=== PATIENT | female | born 1980 | race Caucasian/White ===

== ENCOUNTER → 2020-03-17 14:28 | Outpatient (CLI) | payer MEDICAID, SELFPAY ==
--- NOTE | ~2020-03-17 | CT_ITS ---
EXAMINATION: CT abdomen pelvis wo con DATE: 03/17/2020 14:48 INDICATION: Chronic pelvic pain TECHNIQUE: Computed tomography (CT) of the abdomen and pelvis was performed without intravenous contr ast. The dose-length product (DLP) was 650.12 mGy-cm. Automated exposure control and iterative recons truction technique were employed. COMPARISON: 05/17/2016 FINDINGS: The lung bases are clear. The heart size is normal. There are a few unchanged, scattered th in-walled cystic changes of the lung bases. The liver, spleen, pancreas, gallbladder, and adrenal gla nds are normal. The kidneys are unremarkable. No pathologically enlarged abdominal or pelvic lymph no bob are identified. There is no free intraperitoneal gas or evidence of bowel obstruction. There are phleboliths in the pelvis. Changes of hysterectomy are noted. There is a fat-containing umbilical her kena. Mild lumbar spondylosis is noted. IMPRESSION: 1. No CT correlate for the patient's symptoms. Reviewed, dictated and finalized at location A. [employer] WORK[employer]
== END ==
PROVIDERS: Visit Provider Nurse Practitioner Family
DX: R10.2 Pelvic and perineal pain (principal)
CPT/HCPCS: 74176

== ENCOUNTER 2022-09-03 12:49 | Outpatient (RCR) | payer OTHER, SELFPAY ==
[2022-09-03 13:13] LABS: Basophils Absolute Auto 0.1 K/mm3 (0.0-0.1); Basophils Percent Auto 0.6 % (0.2-1.2); Eosinophils Absolute Auto 0.3 K/mm3 (0-0.3); Eosinophils Percent Auto 2.4 % (0-4.4); Hematocrit 41.8 % (37.0-47.0); Hemoglobin 13.8 g/dL (12.0-15.0); Immature Granulocyte Absolute 0.06 K/mm3 (0.00-0.031); Immature Granulocyte Percent A 0.4 % (0-0.5); Lymphocytes Absolute Auto 3.93 K/mm3 (0.9-3.2); Lymphocytes Percent Auto 28.2 % (18.3-44.2); Mean Corpuscular Hemoglobin 28.6 pg (26-34); Mean Corpuscular Volume 86.7 fl (80-100); Mean Platelet Volume 7.8 fl (7.4-10.4); Monocytes Absolute Auto 0.7 K/mm3 (0.1-0.6); Monocytes Percent Auto 5.2 % (2.6-8.5); Neutrophils Absolute Auto 8.8 K/mm3 (1.3-6.7); Neutrophils Percent Auto 63.2 % (45.5-73.1); Platelet Count Result 341 k/mm3 (150-375); Red Blood Count 4.82 M/mm3 (4.2-5.4); Red Cell Distribution Width 13.8 % (11.5-14.5); White Blood Count 13.9 K/mm3 (4.5-10.0)
[2022-09-03 15:40] LABS: Alanine Aminotransferase 26 U/L (6-35); Alkaline Phosphatase 96 U/L (38-126); Anion Gap 7 mmol/L (8-16); Aspartate Amino Transferase 22 U/L (14-36); Bilirubin,Total 0.4 mg/dL (0.2-1.3); Blood Urea Nitrogen 11 mg/dL (7-17); Calcium 8.5 mg/dL (8.4-10.2); Carbon Dioxide 27 mmol/L (22-30); Chloride 105 mmol/L (98-107); Estimated Glomerular Filt Rate > 60; Glucose 116 mg/dL (65-110); Potassium 3.5 mmol/L (3.4-5.0); Sodium 139 mmol/L (137-145)
[2022-09-03 16:09] LABS: Hepatitis B Surface Antigen Negative (Negative)
[2022-09-03 16:19] LABS: HIV 1/2 Ab P24 Ag Result Negative (Negative)
[2022-09-03 16:27] LABS: Hepatitis C Virus Antibody Negative (Negative)
== END 2022-09-06 12:45 | disposition other institution (70) ==
LOC: AMCINF 12:49
PROVIDERS: PCP Nurse Practitioner Family; Visit Provider Internal Medicine
DX: D72.829 Elevated white blood cell count, unspecified (principal)
CPT/HCPCS: 36415; 80053; 85025; 86703; 86803; 87340; G0432

== ENCOUNTER 2022-09-14 11:57 | Outpatient (CLI) | payer OTHER, SELFPAY ==
--- NOTE | ~2022-09-14 | XR_ITS ---
AP and lateral views of the right tibia/fibula Clinical History: Pain Findings: No acute fracture or dislocation is seen. Osseous alignment is anatomic. Joint spaces are p reserved without significant erosive or degenerative change. Soft tissues are unremarkable. Impression: Unremarkable right tib-fib radiographs. Reviewed, dictated and finalized at location . Impression: Unremarkable right tib-fib radiographs.
--- NOTE | ~2022-09-14 | XR_ITS ---
AP and lateral views of the left tibia/fibula Clinical History: Pain Findings: No acute fracture or dislocation is seen. Osseous alignment is anatomic. Joint spaces are p reserved without significant erosive or degenerative change. Soft tissues are unremarkable. Impression: Unremarkable left tib-fib radiographs. Reviewed, dictated and finalized at location . Impression: Unremarkable left tib-fib radiographs.
--- NOTE | ~2022-09-14 | XR_ITS ---
EXAMINATION: XR femur LT min 2V DATE: 09/14/2022 12:37 INDICATION: Bilateral upper leg pain TECHNIQUE: AP and lateral views of the left femur were obtained on overlapping proximal and distal im ages. COMPARISON: None. FINDINGS: Alignment is normal. No fracture or suspected avascular necrosis. Left hip and knee joint spaces appe ar normal. Small enthesophyte at the lesser trochanter. Soft tissues are unremarkable. IMPRESSION: 1. Small enthesophyte at the lesser trochanter of the left femur. Otherwise unremarkable left femur r adiographs. Reviewed, dictated and finalized at location L. IMPRESSION: 1. Small enthesophyte at the lesser trochanter of the left femur. Otherwise unr emarkable left femur radiographs.
--- NOTE | ~2022-09-14 | XR_ITS ---
AP and lateral views of the right femur Clinical History: Pain Findings: No acute fracture or dislocation is seen. Osseous alignment is anatomic. Visualized joint s paces are grossly preserved. Soft tissues are unremarkable. Impression: Unremarkable right femoral radiographs. Reviewed, dictated and finalized at location M. Impression: Unremarkable right femoral radiographs.
== END 2022-09-14 11:58 | disposition home or self-care (01) ==
PROVIDERS: PCP Nurse Practitioner Family; Visit Provider Nurse Practitioner Family
DX: M79.604 Pain in right leg (principal); M79.605 Pain in left leg; M76.9 Unspecified enthesopathy, lower limb, excluding foot
CPT/HCPCS: 73552; 73590

== ENCOUNTER 2022-09-29 01:27 | Day surgery (SDC) | payer OTHER, SELFPAY ==
[2022-09-16 11:26] VITALS: BMI 32.1
--- NOTE | 2022-09-28 13:51 | P.PNAN_ITS ---
Anes - Initial Pre Proc Eval Procedure: Operation Date: 09/29/22 08:15 Proposed Procedures p Colonoscopy - Earl Schmidt MD Date/Time: 09/28/22 13:51 Surgeon: Earl Schmidt MD Pre Op Diagnosis: hematochezia Patient Data Age: 42 Gender: F Height: 1.63 m Weight: 85 kg Allergies Allergy/AdvReac Type Severity Reaction Status Date / Time No Known Allergies Allergy Verified 09/29/22 07:09 Home Medications Medication Instructions Recorded Confirmed Type Wily-Iron 65 mg PO DAILY 09/16/22 09/29/22 History Vitamin D3 1 tab-cap BYMOUTH DAILY 09/16/22 09/29/22 History Patient hx anesthesia problems: none Family hx anesthesia problems: none Results Review: All pre-operative results and documents have been reviewed as part of the pre- operative evaluation. PMFSH Past Medical History Medical History (Updated 09/28/22 @ 13:52 by Willis Schwab DO) Endometriosis Surgical History Surgical History (Updated 09/28/22 @ 13:52 by Willis Schwab DO) History of hysterectomy Social History Social History (System 11/14/19 @ 09:56 by Josie Lowe) Smoking packs per day: 1.5 Smoking cigarettes per day: 30.0 Years smoked: 15 Smoking pack-years: 22.50 Smoking status: Current every day smoker Tobacco type: cigarettes Substance use: never Substance use type: does not use Living arrangements: with family Spiritual care concerns: No Anes - Eval Final PreProcedure Day of Procedure 09/28/22 13:51 Patient weight: obese Heart: regular rate and rhythm Lungs: clear to auscultation Airway: Mallampati scale class II Neurological: alert and oriented Last oral intake: >/= 8 hours ASA classification: III Emergent: no Anesthetic plan: proceed Anesthesia type and monitoring: general GIVS and standard monitoring Results Review: All pre-operative results and documents have been reviewed as part of the pre- operative evaluation. Informed Consent: The patient's anesthetic plan and its attendant risks and benefits were discussed with the patient/family/POA. Questions were solicited and answers provided to the satisfaction of the patient/family/POA.
[2022-09-29 07:11] VITALS: BP 131/71; PULSE 101; RESP 16; TEMP 36.1; O2SAT 97; BMI 31.6
[2022-09-29] MEDS: LACTATED RINGERS 1,000 ML 150 ML IV CONT (07:23)
--- NOTE | 2022-09-29 08:01 | PM.HPGS ---
History of Present Illness History of Present Illness Consent: Risks, benefits, and alternatives have been discussed and questions answered. Patient agrees to proceed with procedure. Chief complaint: hematochezia Narrative: Ashley Sullivan is a 42 year old female with hematochezia, never had colonoscopy Review of Systems Constitutional: Constitutional: Denies headache(s) and Denies weakness Eyes: Eyes: Denies blurry vision ENT: Reports Normal hearing present, Denies headache(s) and Denies neck pain Cardiovascular: Cardiovascular: Denies chest pain and Denies dyspnea Respiratory: Respiratory: Denies dyspnea Gastrointestinal: Gastrointestinal: Reports no additional gastrointestinal complaints Genitourinary: Genitourinary: Denies dysuria Musculoskeletal: Musculoskeletal: Denies neck pain Integumentary/Breasts: Skin/Breast: Denies dry skin Neurologic: Reports Normal hearing present, Denies headache(s) and Denies weakness Psychiatric: Psychiatric: Denies anxiety Endocrine: Endocrine: Denies change in body appearance Hematologic/Lymphatic: Hematologic/Lymphatic: Denies easy bleeding Allergic/Immunologic: Allergic/Immunologic: Denies urticaria PMFSH Past Medical History Medical History (Updated 09/29/22 @ 08:02 by Earl Schmidt MD) Endometriosis Rectal bleeding Surgical History Surgical History (Updated 09/28/22 @ 13:52 by Willis Schwab DO) History of hysterectomy Social History Social History (System 11/14/19 @ 09:56 by Josie Lowe) Smoking packs per day: 1.5 Smoking cigarettes per day: 30.0 Years smoked: 15 Smoking pack-years: 22.50 Smoking status: Current every day smoker Tobacco type: cigarettes Substance use: never Substance use type: does not use Living arrangements: with family Spiritual care concerns: No Meds Home Medications and Allergies Home Medications Medication Instructions Recorded Confirmed Type Wily-Iron 65 mg PO DAILY 09/16/22 09/29/22 History Vitamin D3 1 tab-cap BYMOUTH DAILY 09/16/22 09/29/22 History Allergies Allergy/AdvReac Type Severity Reaction Status Date / Time No Known Allergies Allergy Verified 09/29/22 07:09 Vital Signs Vital Signs - 24 hr 09/29/22 07:11 Temperature 97 F L Pulse Rate 101 H Respiratory Rate 16 Blood Pressure 131/71 Pulse Oximetry 97 Oxygen Delivery Room Air Exam Const: General: comfortable and no acute distress HENMT: Face/Nose/Sinus: Normal nares present Eyes: General: appearance normal, both eyes and all related structures Neck: Neck: no JVD Resp: Auscultation: clear to auscultation bilaterally Cardio: Rate: regular rate Rhythm: regular rhythm GI: Inspection: non-distended GI Palp: Yes Soft to palpation Skin: General skin exam: normal color Neuro: General: gait normal Speech: normal speech Extrem: General: normal to inspection Psych: Mental Status: mental status grossly normal Assessment and Plan Assessment and plan (1) Rectal bleeding: Code(s): K62.5 - Hemorrhage of anus and rectum Status: Acute Assessment and Plan: colonoscopy
[2022-09-29 08:27] VITALS: BP 113/71; PULSE 87; RESP 20; O2SAT 97
[2022-09-29 08:37] VITALS: BP 116/73; PULSE 79; RESP 18; O2SAT 97
[2022-09-29 08:47] VITALS: BP 138/86; PULSE 80; RESP 16; O2SAT 98
== END 2022-09-29 09:08 | disposition home or self-care (01) ==
PROVIDERS: PCP Nurse Practitioner Family; Visit Provider Internal Medicine Gastroenterology
PROC: 0DJD8ZZ Inspection of Lower Intestinal Tract, Via Natural or Artificial Opening Endoscopic (ICD-10-PCS; CPT 45378; principal; 2022-09-29 08:15)
DX: K63.5 Polyp of colon (principal); K64.8 Other hemorrhoids; K64.4 Residual hemorrhoidal skin tags; F17.210 Nicotine dependence, cigarettes, uncomplicated; E66.9 Obesity, unspecified; Z68.31 Body mass index [BMI] 31.0-31.9, adult
CPT/HCPCS: 45385; 88305; J2704; J7120

== ENCOUNTER 2022-10-12 12:51 | Outpatient (CLI) | payer OTHER, SELFPAY | END 2022-10-12 12:52 | disposition home or self-care (01) | PROVIDERS: PCP Nurse Practitioner Family; Visit Provider Internal Medicine Hematology & Oncology | DX: D72.829 Elevated white blood cell count, unspecified (principal) | CPT/HCPCS: 88184 ==

== ENCOUNTER 2022-12-02 14:34 | Outpatient (CLI) | payer OTHER, SELFPAY ==
--- NOTE | ~2022-12-02 | US_ITS ---
EXAMINATION:US venous doppler LE BI INDICATION:Leg pain TECHNIQUE: Multiple grayscale, color flow and Doppler images of the right and left lower extremity de ep venous systems were obtained and reviewed. COMPARISON:No prior studies for comparison. FINDINGS: The common femoral, superficial femoral and popliteal veins demonstrate normal respiratory variation, augmentation and compressibility. Color flow is also seen within the posterior tibial, pe roneal, greater saphenous and profunda veins. IMPRESSION: 1: No lower extremity deep venous thrombosis. Reviewed, dictated and finalized at location L.
== END 2022-12-02 14:35 | disposition home or self-care (01) ==
PROVIDERS: PCP Nurse Practitioner Family; Visit Provider Nurse Practitioner Family
DX: M79.604 Pain in right leg (principal); M79.605 Pain in left leg
CPT/HCPCS: 93970

== ENCOUNTER 2023-04-19 10:04 | Outpatient (CLI) | payer OTHER, SELFPAY ==
--- NOTE | ~2023-04-19 | XR_ITS ---
EXAMINATION: XR lumbar spine 2-3V DATE: 04/19/2023 10:20 INDICATION: Low back pain. Bilateral leg burning pain. TECHNIQUE: 3 views of lumbar spine were obtained. COMPARISON: CT abdomen and pelvis 03/17/2020 FINDINGS: There is 4 degrees dextrocurvature of thoracolumbar spine. Vertebral body heights are abdullahi l. There are endplate osteophytes at multiple levels. There is multilevel mild facet joint osteoarthr itis. IMPRESSION: 1. Mild lumbar spondylosis. Reviewed, dictated and finalized at location A. IMPRESSION: 1. Mild lumbar spondylosis.
== END 2023-04-19 10:05 | disposition home or self-care (01) ==
LOC: ANHIMG 10:06
PROVIDERS: PCP Nurse Practitioner Family; Visit Provider Family Medicine
DX: M47.896 Other spondylosis, lumbar region (principal)
CPT/HCPCS: 72100

== ENCOUNTER 2023-04-28 08:19 | Outpatient (CLI) | payer OTHER, SELFPAY ==
--- NOTE | ~2023-04-28 | US_ITS ---
EXAMINATION: US arterial ankle brachial ind DATE: 04/28/2023 09:02 INDICATION: Bilateral lower limb pain and paresthesias. TECHNIQUE: Segmental pressures and plethysmographic and Doppler waveforms of the brachial and lower e xtremity arteries were obtained. COMPARISON: None. FINDINGS: Right and left brachial artery pressures of 133 mm Hg and 137 mm Hg, respectively, are concordant (no rmal difference <= 30 mmHg). The right ankle-brachial index (FABIOLA) is 1.17 (normal >= 0.9-1.0). The right great toe-brachial index (TBI) is 0.88 (normal >= 0.65). Arterial Doppler waveforms are biphasic with brisk systolic upstrokes at both right posterior tibial and dorsalis pedis arteries. The left FABIOLA is 1.23. The left TBI is 0.84. Arterial Doppler waveforms are biphasic with brisk systol ic upstrokes at both left posterior tibial and dorsalis pedis arteries. IMPRESSION: 1. No significant arterial occlusive disease to either lower limb with normal bilateral ABIs and TBIs . Reviewed, dictated and finalized at location A. IMPRESSION: 1. No significant arterial occlusive disease to either lower limb with normal b ilateral ABIs and TBIs.
== END 2023-04-28 08:20 | disposition home or self-care (01) ==
PROVIDERS: PCP Nurse Practitioner Family; Visit Provider Family Medicine
DX: M79.605 Pain in left leg (principal); M54.50 Low back pain, unspecified; G62.9 Polyneuropathy, unspecified; M79.604 Pain in right leg; R20.2 Paresthesia of skin
CPT/HCPCS: 93922

== ENCOUNTER 2024-03-01 08:11 | Emergency (ER) | payer SELFPAY ==
--- NOTE | 2024-03-01 08:12 | ED_ITS ---
HPI - URI/Sore Throat General Chief Complaint: Upper Respiratory Infection Stated Complaint: Sore Throat/Body Aches/Cough Time Seen by Provider: 03/01/24 08:12 Source: patient Mode of arrival: ambulatory Limitations: no limitations History of Present Illness HPI Narrative: PATIENT IS A 43-YEAR-OLD FEMALE WHO PRESENTS WITH RIGHT EAR PAIN, sore throat, congestion, cough for a month. Patient has taken [id number] cold flu with no relief. States there was a short period of time that she felt better and then symptoms returned and worsened. Denies any fever, chills, nausea, vomiting, diarrhea. Related Data Home Medications ?Medication ?Instructions ?Recorded ?Confirmed ?Last Taken ?Type Wily-Iron 65 mg PO DAILY 09/16/22 09/29/22 09/22/22 09:00 History Vitamin D3 1 tab-cap BYMOUTH DAILY 09/16/22 09/29/22 09/27/22 History aripiprazole 5 mg tablet mg 03/01/24 Unknown History metformin 500 mg tablet,extended mg PO 03/01/24 Unknown History release 24 hr Allergies Allergy/AdvReac Type Severity Reaction Status Date / Time No Known Allergies Allergy Verified 03/01/24 08:21 Review of Systems Review of Systems: All systems reviewed & are unremarkable except as noted in HPI and below Constitutional: Constitutional: Denies body ache(s), Denies chills, Denies fatigue, Denies fever(s), Denies headache(s), Denies malaise and Denies weakness Eyes: Eyes: Denies blurry vision, Denies itchy eyes and Denies loss of vision ENT: Reports otalgia, Denies headache(s), Denies nasal congestion, Denies sinus pain and Reports sore throat Cardiovascular: Cardiovascular: Denies chest pain, Denies irregular heart rhythm and Denies dyspnea Respiratory: Respiratory: Reports cough and Denies dyspnea Gastrointestinal: Gastrointestinal: Denies abdominal pain, Denies diarrhea, Denies nausea and Denies vomiting Musculoskeletal: Musculoskeletal: Denies back pain, Denies myalgias and Denies arthralgias Integumentary/Breasts: Skin/Breast: Denies pruritus and Denies rash Neurologic: Denies headache(s), Denies loss of vision and Denies weakness Psychiatric: Psychiatric: Reports no additional psychiatric complaints Endocrine: Endocrine: Denies fatigue Allergic/Immunologic: Allergic/Immunologic: Denies itchy eyes PMFSH Past Medical History Medical History Rectal bleeding Endometriosis Surgical History Surgical History History of hysterectomy Social History Social History Smoking packs per day: 1.5 Smoking cigarettes per day: 30.0 Years smoked: 15 Smoking pack-years: 22.50 Smoking status: Current every day smoker Tobacco type: cigarettes Substance use: never Substance use type: does not use Living arrangements: with family Spiritual care concerns: No Comments At time of signature, agree with nursing past medical, surgical, social and family history. There is no relevant family history pertinent to the presenting complaint. Exam Const: General: cooperative, healthy appearing, comfortable, no acute distress and well nourished Nutritional Appearance: well nourished Orientation/consciousness: patient oriented x3 Limitations: no limitations HENMT: Head: normal to inspection, normocephalic and atraumatic Ears: hearing grossly normal bilaterally, external ears normal, TM's normal bilaterally, EAC's normal and no periauricular adenopathy Face/Nose/Sinus: Normal external nose present, Abnormal mucous membranes and turbinates present erythematous bilateral and diffuse, normal facial exam, sinuses nontender and face symmetric Face and sinus: normal facial exam, sinuses nontender and face symmetric Mouth: Yes Normal oral and palatal mucosa present, Yes lip normal, Yes tongue normal, Yes Normal salivary glands and ducts present, Yes oropharynx normal and Yes moist mucous membranes Teeth and gingiva: dentition normal Throat: posterior oropharynx normal, tonsils normal and uvula midline Eyes: General: appearance normal, both eyes and all related structures Alignment and Position: alignment normal and position normal Periorbital: periorbital findings normal Eyelids: eyelids normal Pupils: Equal, round and reactive pupils present Neck: Neck: normal visual inspection, full ROM, no lymphadenopathy and supple Chest: Chest palpation & inspection: normal inspection of the chest and normal palpation of entire chest wall Resp: Effort & Inspection: normal respiratory effort, able to speak in complete sentences and Actively coughing actively coughing Auscultation: clear to auscultation bilaterally, no crackles, no rales, no rhonchi and no wheezes Cardio: Rate: regular rate Rhythm: regular rhythm Heart sounds: S1 normal heart sound present and S2 normal heart sound present GI: Inspection: normal to inspection Skin: General skin exam: normal color and no rashes or lesions noted Neuro: General: patient oriented x3 and moves all extremities Cranial nerves: Yes Equal, round and reactive pupils present Speech: normal speech Gait exam (Neuro): Normal gait present Extrem: General: normal to inspection, full ROM and no edema Psych: Appearance: grossly normal and well kempt Mental Status: mental status grossly normal Speech and movement: Normal speech and movement present Affect: normal affect Attitude: cooperative Thought process: Normal thought process present Course Course Emergency Course: Discharge instructions reviewed with patient, as well as provided in writing per nursing staff. The instructions also include specific and strict return/GO TO THE ER as well as f/u information. All questions have been answered, and the patient deny any further questions with discharge and discharge plan. Portions of this record may have been created with voice recognition software Level of Care: Express Care Visit Vital Signs Vital signs: Vital Signs Temperature 36.6 C 03/01/24 08:22 Pulse Rate 84 03/01/24 08:22 Respiratory Rate 16 03/01/24 08:22 Blood Pressure 146/75 H 03/01/24 08:22 Pulse Oximetry 100 03/01/24 08:22 Oxygen Delivery Room Air 03/01/24 08:22 Temperature 36.6 C 03/01/24 08:22 Pulse Rate 84 03/01/24 08:22 Respiratory Rate 16 03/01/24 08:22 Blood Pressure 146/75 H 03/01/24 08:22 Pulse Oximetry 100 03/01/24 08:22 Oxygen Delivery Room Air 03/01/24 08:22 Reviewed MDM - URI/Sore Throat MDM Narrative Medical decision making narrative: Pt well hydrated appearing, in no respiratory distress, hemodynamically stable. Recommend supportive care. The patient is stable at time of discharge the clinical impression was discussed and the patient was given the opportunity to ask questions, which were addressed as completely as possible given the information available at present. Anticipatory guidance and return to care precautions were discussed and the importance of primary care follow-up was stressed and encouraged. The patient voiced understanding of the plan, indications to return, and the need for follow-up. Differential diagnosis considered: Uriarte virus, strep pharyngitis, allergic rhinitis, upper respiratory tract infection, sinusitis, rhinosinusitis, nasopharyngitis. viral pharyngitis, otitis media, otitis externa, otitis effusion, foreign body, cerumen impaction, viral syndrome, and influenza.? Exam findings show no acute concerns or changes; patient is non-toxic appearing and is in no distress.? Patient is appropriate for outpatient treatment and follow- up.? Medical Records Attestation: I reviewed the patient's medical records. Lab Data Attestation: I reviewed the patient's lab results. Discharge Plan Discharge Clinical Impression: Upper respiratory infection with cough and congestion Patient Disposition: Home, Self-Care Condition: Stable Instructions: Upper Respiratory Infection (ED) Additional Instructions: Take antibiotic as prescribed. Take steroids in the morning with food. Use Tessalon Perles as needed for cough. Other symptomatic treatments include: -For pain, you may take: Tylenol 650-1000mg by mouth every 4-6 hours. Do not exceed 4000mg in 24 hours. Advil (Ibuprofen) 600 mg by mouth every 6 hours. Do not exceed 2400mg in 24 hours. 8 AM: Tylenol 11 AM: Ibuprofen 2 PM: Tylenol 5 PM: Ibuprofen 8 PM: Tylenol 11 PM: Ibuprofen 2 AM: Tylenol 5 AM: Ibuprofen -Antihistamine medication such as Benadryl at night and Zyrtec/Claritin/Yelitza during the day can help improve symptoms. -Use Flonase twice a day for 5 days then daily to help reduce the inflammation and dry up your sinuses. -You can also use Sudafed or Mucinex. Be sure to drink plenty of water with these medications at least 8 ounces with every dose and it is important to drink 8 to 10 glasses of water per day. Water is a natural decongestant -Eat and drink things that are easy to swallow, like tea or soup, or popsicles. -Oral rinses such as: Salt water gargles and/or may use topical anesthetic (eg. Chloraseptic spray) or lozenges to relieve dryness or throat pain). -Frequent hand washing or hand field scout is one of the best ways to prevent spread of infection. -Using a vaporizer or humidifier at night will also help thin secretions and help with coughing up phlegm. -Follow up with primary care provider in 3-5 days if condition is not improving - For new or worsening symptoms go directly to the nearest ER Your blood pressure was elevated above 120/80 today at Urgent Care. This puts you above the threshold for follow up visit with a primary care provider. High blood pressure does not usually cause any symptoms, however it may lead to kidney failure, stroke, heart disease just to name a few if untreated . Many p eople are anxious when seeing a provider or nurse. As a result, you are not diagnosed with hypertension at this time unless your blood pressure is persistently high at two office visits at least one week apart. Some things that can help lower blood pressure are lifestyle modifications, such as light exercise, decreased salt in diet, and weight loss. It is important to follow up with a PCP about this within 1 week. If you are having a hard time finding a physician please call our [facility] liaison at [phone]. Patient Language: Prydeinig Prescriptions: New prednisone 20 mg tablet 40 mg PO DAILY 5 Days Qty: 10 0RF amoxicillin 875 mg tablet 875 mg PO Q12H 7 Days Qty: 14 0RF benzonatate 100 mg capsule 100 mg PO BID PRN (Reason: cough) Qty: 14 0RF fluticasone propionate [Flonase Allergy Relief] 50 mcg/actuation spray,suspension 1 spray intranasal DAILY Qty: 16 0RF Rx Instructions: administer into each nostril loratadine 10 mg tablet 10 mg PO DAILY Qty: 30 0RF No Action metformin 500 mg tablet extended release 24 hr PO aripiprazole 5 mg tablet Wily-Iron 65 mg PO DAILY Vitamin D3 1 tab-cap BYMOUTH DAILY Follow-up/Referrals: Saeid Rowley MD [Physician] - 3 Days ([facility]) UNKNOWN,DOCTOR [Non-Staff] - Time of Disposition: 08:31
[2024-03-01 08:22] VITALS: BP 146/75; PULSE 84; RESP 16; TEMP 36.6; O2SAT 100
--- OUTSIDE RECORDS SUMMARY | 2024-03-02 03:53 | XMS_ITS | Data Portability ---
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 She is here for follow-up of her left trochanteric bursitis. I saw her month ago. She started on the diclofenac which did help a little bit. She had a in the family and has been out of town for 3 weeks and has not been able to set up therapy yet. She is still complaining of pain lateral aspect of the left hip. She rates the pain at about a 5 out 10 at the worst. Physical exam: 42-year-old female alert pleasant. She walks well without limp or Trendelenburg sag. She has moderate tenderness over the trochanteric bursa to palpation. She has some mild weakness with abductor testing lateral position. Hip range of motion is full without discomfort. Impression: Patient is continued trochanteric bursitis of the left hip. I did recommend she go back on the diclofenac, she has been off of it for several days when she ran out. I have also recommended that we will reorder the therapy and hopefully this will help with her symptoms as well. See her back in a month to reassess. [email or web address] Not available 01/06/2023 14:55:58 03/10/2023 03/10/2023 HPI: Patient returns. I saw her late December of last year for left trochanteric bursitis. She went to formal physical therapy. She has been taking diclofenac 75 mg b.i.d. and his significant improvement of her symptoms. At 3 or 4 days ago she started having pain again in the left lateral hip. 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 She remembers several days ago she was going up and down the stairs had a client's house carrying a laundry basket full of clothing. Since that time she has been having more pain and lateral hip. She has not maintain her home exercise program following physical therapy for trochanteric bursitis physicalexam: 42-year-old female alert pleasant. She walks well without limp. Left hip flexes to 120 external rotates to 40 internally rotates to 20. With internal rotation she has [id number] discomfort to the lateral hip. She has moderate tenderness to palpation of the trochanteric bursa. Mild weakness with abductor testing in lateral position impression: 42-year-old female who has recurrence of her trochanteric bursitis . I recommended she restart her home exercise program as did work for her in the past per we discussed the option of cortisone injection and she declined. I did offer her a short course of steroids as if think this may help quiet her symptoms down and she wished to do that. If symptoms not improved to her satisfaction she will call otherwise we will see her back as needed noa Not available 03/10/2023 14:18:45 Plan of Treatment Reminders Order Date Submit Date Provider Last Modified By Organization Details Last Modified Time Details Appointments None recorded. Lab CBC w/ auto diff 2023 024 [email or web address] 4 [facility] (Lab), [address] [place], [address], 14:51:29 glycohemogl obin, total, blood 2023 024 [email or web address] 4 [facility] (Lab), [address] [place], [address], 14:50:47 BMP, serum or plasma 2023 024 [email or web address] 4 [facility] (Lab), [address] [place], [address], 4 14:51:07 vitamin B12, serum 2023 024 [email or web address] [address] 4 [facility] (Lab), [address] [place], [address], 4 14:49:31 folate, serum 2023 024 [place] [address] 4 [facility] (Lab), [address] [place], [address], 4 14:49:10 iron + total iron-bindin g capacity (TIBC), serum 2023 024 [place] [address] 4 [facility] (Lab), [address] [place], [address], 4 14:49:53 ferritin, serum or plasma [address] [place] [address] 4 [facility] (Lab), [address] [place], [address], 4 14:50:12 TSH, serum or plasma 2023 024 [place] [address] 4 [facility] (Lab), [address] [place], [address], 4 14:50:29 Referral None recorded. Procedures None recorded. Surgeries None recorded. Imaging XR, lumbar spine [email or web address] [place] [address] [facility], [address], [place], [address], 4 09:03:45 ankle brachial index, complete - *Please call pt to schedule* 2023 [facility], [address], [place], [address], 4 09:43:53 Medication Orders hydrocodone 5 mg-acetamin ophen 325 mg tablet 2022 023 [facility]/Pharmacy #[id number], [address], [place], [address], 3 16:27:20 hydrocodone 5 mg-acetamin ophen 325 mg tablet 2023 024 [facility]/Pharmacy #[id number], [address], [place], [address], 4 14:26:16 Patient TargetsNo targets recorded. Patient InstructionsNo instructions recorded. Reason for Referral None Reported. Results Created Date Observation Date Name Description Value Unit Range Abnormal Flag Note LastModifiedBy Organization Detail LastModifiedTime 03/31/19 24 03/31/2023 CBC/C OMPLE TE BLD COUNT W/DIF F white blood cells 12.8 x10'3 /uL 4.2-10 .8 high Not Available [facility] (Lab) [address] [place], [address], 03/31/2023 19:48:44 03/31/19 24 03/31/2023 CBC/C OMPLE TE BLD COUNT W/DIF F red blood cells 4.64 x10'6 /uL 3.80-5 .20 Not Available [facility] (Lab) [address] [place], [address], 03/31/2023 19:48:44 03/31/19 24 03/31/2023 CBC/C OMPLE TE BLD COUNT W/DIF F hemoglobin 13.5 g/dL 12.0-1 5.6 Not Available [facility] (Lab) [address] [place], [address], 03/31/2023 19:48:44 03/31/19 24 03/31/2023 CBC/C OMPLE TE BLD COUNT W/DIF F hematocrit 40.7 % 35.7-4 5.7 Not Available [facility] (Lab) [address] [place], [address], 03/31/2023 19:48:44 03/31/19 24 03/31/2023 CBC/C OMPLE TE BLD COUNT W/DIF F mean red cell volume 87.7 fL 82.0-9 9.0 Not Available [facility] (Lab) [address] [place], [address], 03/31/2023 19:48:44 03/31/19 24 03/31/2023 CBC/C OMPLE TE BLD COUNT W/DIF F mean red cell hemoglobin 29.1 pg 27.0-3 3.0 Not Available [facility] (Lab) [address] [place], [address], 03/31/2023 19:48:44 03/31/19 24 03/31/2023 CBC/C OMPLE TE BLD COUNT W/DIF F mean RBC HGB concentratio n 33.2 g/dL 31.0-3 6.0 Not Available [facility] (Lab) [address] [place], [address], 03/31/2023 19:48:44 03/31/19 24 03/31/2023 CBC/C OMPLE TE BLD COUNT W/DIF F red cell distribution width 14.3 % 11.8-1 5.5 Not Available [facility] (Lab) [address] [place], [address], 03/31/2023 19:48:44 03/31/19 24 03/31/2023 CBC/C OMPLE TE BLD COUNT W/DIF F platelets 348 x10'3 /uL 150-40 0 Not Available [facility] (Lab) [address] [place], [address], 03/31/2023 19:48:44 03/31/19 24 03/31/2023 CBC/C OMPLE TE BLD COUNT W/DIF F mean platelet volume 8.7 fL 9.0-12 .4 low Not Available [facility] (Lab) [address] [place], [address], 03/31/2023 19:48:44 03/31/19 24 03/31/2023 CBC/C OMPLE TE BLD COUNT W/DIF F neutrophils 63.3 % 39.0-7 2.0 Not Available [facility] (Lab) [address] [place], [address], 03/31/2023 19:48:44 03/31/19 24 03/31/2023 CBC/C OMPLE TE BLD COUNT W/DIF F lymphocytes 28.1 % 16.0-4 7.0 Not Available [facility] (Lab) [address] [place], [address], 03/31/2023 19:48:44 03/31/19 24 03/31/2023 CBC/C OMPLE TE BLD COUNT W/DIF F monocytes 4.9 % 5.0-12 .0 low Not Available [facility] (Lab) [address] [place], [address], 03/31/2023 19:48:44 03/31/19 24 03/31/2023 CBC/C OMPLE TE BLD COUNT W/DIF F eosinophils 2.7 % 1.0-7. 0 Not Available [facility] (Lab) [address] [place], [address], 03/31/2023 19:48:44 03/31/19 24 03/31/2023 CBC/C OMPLE TE BLD COUNT W/DIF F basophils 0.7 % 0.0-2. 0 Not Available [facility] (Lab) [address] [place], [address], 03/31/2023 19:48:44 03/31/19 24 03/31/2023 CBC/C OMPLE TE BLD COUNT W/DIF F immature granulocytes 0.3 % 0.00-0 .50 Not Available [facility] (Lab) [address] [place], [address], 03/31/2023 19:48:44 03/31/19 24 03/31/2023 CBC/C OMPLE TE BLD COUNT W/DIF F neutrophils, absolute count 8.10 x10'3 /uL 1.5-8. 0 high Not Available [facility] (Lab) [address] [place], [address], 03/31/2023 19:48:44 03/31/19 24 03/31/2023 CBC/C OMPLE TE BLD COUNT W/DIF F lymphocytes, absolute count 3.60 x10'3 /uL 1.07-3 .43 high Not Available [facility] (Lab) [address] [place], [address], 03/31/2023 19:48:44 03/31/19 24 03/31/2023 CBC/C OMPLE TE BLD COUNT W/DIF F monocytes, absolute count 0.63 x10'3 /uL 0.29-0 .99 Not Available [facility] (Lab) [address] [place], [address], 03/31/2023 19:48:44 03/31/19 24 03/31/2023 CBC/C OMPLE TE BLD COUNT W/DIF F eosinophils, absolute count 0.34 x10'3 /uL 0.02-0 .53 Not Available [facility] (Lab) [address] [place], [address], 03/31/2023 19:48:44 03/31/19 24 03/31/2023 CBC/C OMPLE TE BLD COUNT W/DIF F basophils, absolute count 0.09 x10'3 /uL 0.01-0 .08 high Not Available [facility] (Lab) [address] [place], [address], 03/31/2023 19:48:44 03/31/19 24 03/31/2023 CBC/C OMPLE TE BLD COUNT W/DIF F immature granulocytes ,absolute 0.04 x10'3 /uL 0.00-0 .05 Not Available [facility] (Lab) [address] [place], [address], 03/31/2023 19:48:44 03/31/19 24 03/31/2023 CBC/C OMPLE TE BLD COUNT W/DIF F nucleated red blood cells 0.0 % -0 Not Available [facility] (Lab) [address] [place], [address], 03/31/2023 19:48:44 03/31/19 24 03/31/2023 CBC/C OMPLE TE BLD COUNT W/DIF F NRBC# 0.00 x10'3 /uL Not Available [facility] (Lab) [address] [place], [address], 03/31/2023 19:48:44 03/31/19 24 03/31/2023 IRON/ TIBC PANEL total iron binding capacity 310 mcg/d L 265-47 5 Not Available [facility] (Lab) [address] [place], [address], 03/31/2023 20:16:54 03/31/19 24 03/31/2023 IRON/ TIBC PANEL % transferrin saturation 20 % 20-55 Not Available [facility] (Lab) [address] [place], [address], 03/31/2023 20:16:54 03/31/19 24 03/31/2023 IRON/ TIBC PANEL unsaturated iron bind capacity 248 mcg/d L 126-38 2 Not Available [facility] (Lab) [address] [place], [address], 03/31/2023 20:16:54 03/31/19 24 03/31/2023 IRON/ TIBC PANEL iron 62 mcg/d L 42-175 Not Available [facility] (Lab) [address] [place], [address], 03/31/2023 20:16:54 03/31/19 24 03/31/2023 BASIC METAB OLIC PANEL sodium 140 mmol/ L 137-14 5 Not Available [facility] (Lab) [address] [place], [address], 03/31/2023 20:15:38 03/31/19 24 03/31/2023 BASIC METAB OLIC PANEL potassium 3.4 mmol/ L 3.5-5. 1 low Not Available [facility] (Lab) [address] [place], [address], 03/31/2023 20:15:38 03/31/19 24 03/31/2023 BASIC METAB OLIC PANEL chloride 107 mmol/ L 98-107 Not Available [facility] (Lab) [address] [place], [address], 03/31/2023 20:15:38 03/31/19 24 03/31/2023 BASIC METAB OLIC PANEL carbon dioxide 27 mmol/ L 22-30 Not Available [facility] (Lab) [address] [place], [address], 03/31/2023 20:15:38 03/31/19 24 03/31/2023 BASIC METAB OLIC PANEL anion gap 9.4 mmol/ L 14-22 low Not Available [facility] (Lab) [address] [place], [address], 03/31/2023 20:15:38 03/31/19 24 03/31/2023 BASIC METAB OLIC PANEL glucose 107 mg/dL 70-99 high Not Available [facility] (Lab) [address] [place], [address], 03/31/2023 20:15:38 03/31/19 24 03/31/2023 BASIC METAB OLIC PANEL BUN 11 mg/dL 8-19 Not Available [facility] (Lab) [address] [place], [address], 03/31/2023 20:15:38 03/31/19 24 03/31/2023 BASIC METAB OLIC PANEL creatinine 0.60 mg/dL 0.66-1 .25 low Not Available [facility] (Lab) [address] [place], [address], 03/31/2023 20:15:38 03/31/19 24 03/31/2023 BASIC METAB OLIC PANEL GFR >60 Refer ence Range : N[place]mith ge GFR Healt hy Adult : >60 mL/mi n/1.7 3 m2 Chron ic Kidne y Disea se: 15-60 mL/mi n/1.7 3 m2 Kidne y Failu re: <15/m L/min /1.73 m2 www.n iddk. nih.g ov The MDRD study equat ion has not been valid ated in child rahel <18 years of age; pregn ant women ; the elder ly >85 years of age; or in some racia l or ethni c subgr oups, such as Hisdelon nics. Outsi de the valid ated sandra eters , estim ated GFR is less accur ate, requi ring clini daron judgm ent on a case- by-ca se basis . Clini daron inter preta tion for other races and ages must be made by the clini donn. The MDRD study equat ion has not been valid ated for the evalu ation of serum creat inine relat ed to nutri ken l statu s or medic ation usage . For perso ns <18 years of age, a pedia tric GFR calcu lator is avail able on the F websi te: https ://xochilt w.vasyl suárez.o rg/pr ofess ional s/kdo qi/gf r_cal culat or Not Available [facility] (Lab) [address] [place], [address], 03/31/2023 20:15:38 03/31/19 24 03/31/2023 BASIC METAB OLIC PANEL calcium 9.0 mg/dL 8.4-10 .2 Not Available [facility] (Lab) [address] [place], [address], 03/31/2023 20:15:38 03/31/19 24 03/31/2023 TSH thyroid-stim ulating hormone 1.230 uIU/m L 0.465- 4.680 Not Available [facility] (Lab) [address] [place], [address], 03/31/2023 20:22:57 03/31/19 24 03/31/2023 IONA TIN ferritin 73 NG/mL 6.24-1 37 Not Available [facility] (Lab) [address] [place], [address], 03/31/2023 20:23:38 03/31/19 24 03/31/2023 VITAM IN B12 (VERÓNICA PACO ) vb12 495 pg/mL 239-93 1 Not Available [facility] (Lab) [address] [place], [address], 03/31/2023 21:05:17 03/31/19 24 03/31/2023 FOLAT E, SERUM /PLAS MA folate 6.19 NG/mL 2.76-2 0.0 Not Available [facility] (Lab) [address] [place], [address], 03/31/2023 21:05:22 03/31/19 24 03/31/2023 HEMOG LOBIN A1C HA1C 6.4 % 4.0-6. 0 high Diabe naveen Scree mg Crite orlin: <5.7% Consi stent with absen ce of diabe naveen 5.7-6 .4% Consi stent with incre ased risk for diabe naveen (pred iabet es) >OR=6 .5% Consi stent with diabe naveen REFER ENCE: Diabe naveen Care 2016, 39(Lou ppl.1 ):s13 -s22 Not Available [facility] (Lab) [address] [place], [address], 03/31/2023 21:59:44 12/03/19 23 12/02/2022 US, doppl er, venou s No observ ation record ed. [address], [place], [address], 12/03/2022 13:45:51 12/10/19 XR, hip + pelvi s, unila teral , 2 or 3 view No observ ation record ed. [email or web address] [facility] [place] [address] [facility], [place], [address], 12/09/2022 15:21:50 04/19/19 24 04/19/2023 XR, lumba r spine No observ ation record ed. [address] [address], [place], [address], 06/23/2023 08:56:45 04/19/19 24 04/19/2023 XR, lumba r spine No observ ation record ed. [address] [address], [place], [address], 06/23/2023 08:56:46 04/20/19 24 04/19/2023 XR, lumba r spine No observ ation record ed. [address] [address], [place], [address], 06/23/2023 08:56:47 04/28/19 24 04/28/2023 ankle brach ial index , compl ete No observ ation record ed. [address], [place], [address], 06/23/2023 08:56:47 04/28/19 24 04/28/2023 ankle brach ial index , compl ete No observ ation record ed. [address] [address], [place], [address], 06/23/2023 08:56:11 Result Notes None recorded. Problems Name Problem SNOMED Code Status Onset Date Resolution Date Notes Provider Name and Address Organization Details Recorded Time Ureteric stone 77949237 Active Not Available [facility] 3 16:57:59 Urolithias is 13739906 Active Not Available [facility] 3 16:57:59 Prediabete s 215289053 Active [address], [place], [address] , [facility] 3 15:31:39 Pain in bilateral legs 1818599707477 9108 Active 2022 [address], [address], [place], [address] , [facility] 3 15:31:45 Increased frequency of urination 765464619 Active 2022 [address], [address], [place], [address] , [facility] 3 15:49:57 Vitamin D deficiency 16658433 Active 2022 [address], [address], [place], [address] , [facility] 3 15:54:28 Hypomagnes emia 306151708 Active [address], [place], [address] , [facility] 3 15:56:10 Leukocytos is 634064068 Active 2022 [address], [address], [place], [address] , [facility] 3 16:01:27 Mood disorder 64423366 Active [address], [place], [address] , [facility] 3 14:41:27 Pain of left hip joint 2563888995917 00 Active 2022 COLTON Dorsey [address] [facility], [address] [address], [place], [address] , [facility] 3 17:02:15 Pain in right hip joint 7551327309591 02 Active 2022 Vilma Wray RMMadhuri null, [facility] 3 14:29:01 Trochanter ic bursitis of left hip 7089552524509 03 Active 2022 Vilma Wray RMMadhuri null, [facility] 3 14:28:08 Low back pain 008059513 Active 2023 Joanna Burris MD [address] [facility], [address] [address], [place], [address] , [facility] 4 14:20:34 Hyperglyce frederick 50462844 Active 2023 Joanna Burris MD [address] [facility], [address] [address], [place], [address] , [facility] 4 14:22:15 Hypokalemi a 28617947 Active 2023 Joanna Burris MD [address] [facility], [address] [address], [place], [address] , [facility] 4 08:56:26 Notes:Medical History: Rhini tis Obesity Urolithiasis Vit D deficiency Problem Notes None recorded. 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 Not Available [facility] 04/07/2022 16:57:08 tonsillectomy completed Not Available [facility] 04/07/2022 16:57:08 Imaging Results Imaging Date Name Status LastModified by Organiz [facility] Details LastModified Time 12/02/2022 US, doppler, venous completed [email or web address] [address] [place] [address], [address], 12/03/2022 13:45:51 12/09/2022 XR, hip + pelvis, unilateral, 2 or 3 view completed [email or web address] [facility] [address], [place], [address], 12/09/2022 15:21:50 04/19/2023 XR, lumbar spine completed [address], [address], 06/23/2023 08:56:45 04/19/2023 XR, lumbar spine completed [address], [address], 06/23/2023 08:56:46 04/19/2023 XR, lumbar spine completed [address], [address], 06/23/2023 08:56:47 04/28/2023 ankle brachial index, complete completed [address] [address], [place], [address], 06/23/2023 08:56:47 04/28/2023 ankle brachial index, complete completed [address], [address], 06/23/2023 08:56:11 Procedure Notes None recorded. Medical Equipment None Reported. Allergies No known drug allergies Medications Name Sig Start Date Stop Date Status Note LastModified by Organization Details LastModified Time cyclobenzap rine 10 mg tablet TAKE 1 TABLET BY MOUTH ONCE DAILY AT NIGHT TIME NEEDED FOR MUSCLE SPASMS 12/09 completed Not Available Not Available Not Available amoxicillin 500 mg capsule Take 1 capsule every 12 hours by oral route for 7 days. active Not Available Not Available No t Available nicotine 14 mg/24 hr daily transdermal patch APPLY 1 PATCH ONTO THE SKIN DAILY. REMOVE IF SMOKING 11/03 completed Not Available Not Available Not Available ibuprofen 800 mg tablet TAKE 1 TABLET BY MOUTH THREE TIMES A DAY NEEDED active Not Available Not Available No t Available fluconazole 150 mg tablet Take 1 tablet every week by oral route for 14 days. active Not Available Not Available No t Available hydrocodone 5 mg-acetamin ophen 325 mg tablet TAKE 1-2 TABLETS BY MOUTH EVERY 6 HOURS NEEDED FOR PAIN *MUST LAST 30 DAYS* active Not Available Not Available No t Available phenazopyri dine 200 mg tablet TAKE 1 TABLET BY MOUTH THREE TIMES A DAY NEEDED FOR 7 DAYS 12/28 completed Not Available Not Available Not Available prednisone 20 mg tablet Take 2 tablets every day by oral route for 5 days. 09/09 completed Not Available Not Available Not Available metronidazo le 500 mg tablet 09/28 completed Not Available Not Available Not Available sulfamethox azole 800 mg-trimetho prim 160 mg tablet TAKE 1 TABLET BY MOUTH EVERY 12 HOURS FOR 5 DAYS 09/28 completed Not Available Not Available Not Available tramadol 50 mg tablet TAKE 1 TABLET BY MOUTH THREE TIMES A DAY NEEDED FOR 10 DAYS 12/28 completed Not Available Not Available Not Available amitriptyli ne 50 mg tablet 09/28 completed Not Available Not Available Not Available triamcinolo ne acetonide 0.1 % topical cream APPLY THIN COAT TO AFFECTED AREA TWICE A DAY active Not Available Not Available No t Available amitriptyli ne 25 mg tablet TAKE 1 TABLET BY MOUTH AT BEDTIME TITRATE UP WEEKLY TO TARGET DOSE OF 75 100MG PER NIGHT(MAX 4TABS) 09/28 completed Not Available Not Available Not Available magnesium oxide 400 mg (241.3 mg magnesium) tablet TAKE 1 TABLET BY MOUTH EVERY DAY active Not Available Not Available No t Available nicotine (polacrilex ) 4 mg gum 12/09 completed Not Available Not Available Not Available nicotine 21 mg/24 hr daily transdermal patch APPLY 1 PATCH DAILY FOR 6 WEEKS *STOP SMOKING CIGARETTE S* 12/09 completed Not Available Not Available Not Available sulfamethox azole 200 mg-trimetho prim 40 mg/5 mL oral suspension Take 20 mL every 12 hours by oral route. 11/03 completed Not Available Not Available Not Available gabapentin 300 mg capsule TAKE 1 CAPSULE BY MOUTH THREE TIMES A DAY NEEDED 12/28 completed Not Available Not Available Not Available diclofenac sodium 75 mg tablet,roger yed release TAKE 1 TABLET BY MOUTH TWICE A DAY active Not Available Not Available No t Available hydroxyzine HCl 25 mg tablet TAKE 1 TABLET BY MOUTH THREE TIMES A DAY NEEDED 2023 active Not Available Not Available Not Avai lable ergocalcife rol (vitamin D2) 1,250 mcg (50,000 unit) capsule TAKE 1 CAPSULE BY MOUTH ONCE WEEKLY active Not Available Not Available No t Available estradiol 0.01% (0.1 mg/gram) vaginal cream 12/09 completed Not Available Not Available Not Available methylpredn isolone 4 mg tablets in a dose pack TAKE 6 TABLETS ON DAY 1 DIRECTED ON PACKAGE AND DECREASE BY 1 TAB EACH DAY FOR A TOTAL OF 6 DAYS 03/31 completed Not Available Not Available Not Available fluticasone propionate 50 mcg/actuati on nasal spray,suspe nsion INSTILL 1 SPRAY INTO EACH NOSTRIL ONCE DAILY active Not Available Not Available No t Available metformin ER 500 mg tablet,exte nded release 24 hr 1 po qdinner x 7 days then increase to 2 po qdinner active Not Available Not Available No t Available amoxicillin 875 mg-potassiu m clavulanate 125 mg tablet TAKE 1 TABLET BY MOUTH EVERY 12 HOURS FOR 7 DAYS active Not Available Not Available No t Available escitalopra m 10 mg tablet Take 1 tablet every day by oral route for 90 days. 11/30 completed Not Available Not Available Not Available escitalopra m 20 mg tablet TAKE 1 TABLET BY MOUTH EVERY DAY active Not Available Not Available No t Available aripiprazol e 5 mg tablet TAKE 1 TABLET BY MOUTH EVERY DAY active Not Available Not Available No t Available bupropion HCl XL 300 mg 24 hr tablet, extended release TAKE 1 TABLET BY MOUTH EVERY DAY 09/28 completed Not Available Not Available Not Available bupropion HCl XL 150 mg 24 hr tablet, extended release TAKE 1 TABLET BY MOUTH EVERY DAY 08/26 completed Not Available Not Available Not Available escitalopra m 5 mg tablet TAKE 1 TABLET BY MOUTH EVERY DAY 11/30 completed Not Available Not Available Not Available nitrofurant oin monohydrate /macrocryst als 100 mg capsule TAKE 1 CAPSULE BY MOUTH EVERY 12 HOURS WITH MEALS FOR 7 DAYS 12/28 completed Not Available Not Available Not Available pregabalin 50 mg capsule Take 1 cap twice daily as needed active Not Available Not Available No t Available potassium chloride ER 20 mEq tablet,exte nded release TAKE 1 TABLET BY MOUTH EVERY DAY active Not Available Not Available No t Available bupropion HCl 150 mg tablet,12 hr sustained-r elease(smok ing deterrent) TAKE 1 TABLET TWICE A DAY BY ORAL ROUTE FOR 90 DAYS. 09/28 completed Not Available Not Available Not Available magnesium 400 mg (as magnesium oxide) tablet Take 1 tablet every day by oral route for 90 days. 2022 active Not Available Not Available Not Avai lable Vitals Date Recorded Body height Body mass index (BMI) Body weight Body temperature Heart rate Oxygen saturation Oxygen saturation in Arterial blood by Pulse oximetry Systolic blood pressure Diastolic blood pressure Provider Name and Address Organization Details Last Updated DateTime 3 160.02 cm 32.9 kg/m2 66425.1 8 g 97.1 [degF] 82 /min 97 % 97 % 120 mm[Hg] 76 mm[Hg] Adriane weller [employer] [facility] 3 16:05:31 Date Recorded Body height Provider Name an d Address Organization Details Last Updated DateTime 01/06/2023 160.02 cm Vilma Wray [facility] [employer] [facility] 01/06/2023 14:26:42 Date Recorded Body height Provider Name an d Address Organization Details Last Updated DateTime 03/10/2023 160.02 cm Vilma Wray [facility] [employer] [facility] 03/10/2023 14:06:00 Date Recorded Body height Body mass index (BMI) Body weight Body temperature Heart rate Oxygen saturation Oxygen saturation in Arterial blood by Pulse oximetry Systolic blood pressure Diastolic blood pressure Provider Name and Address Organization Details Last Updated DateTime 4 160.02 cm 33.5 kg/m2 29227.9 6 g 97.9 [degF] 91 /min 97 % 97 % 154 mm[Hg] 108 mm[Hg] Adriane weller [employer] [facility] 4 14:06:21 Date Recorded Body height Systolic blood pressure Diastolic blood pressure Systolic blood pressure Diastolic blood pressure Provider Name and Address Organization Details Last Updated DateTime 4 160.02 cm 152 mm[Hg] 108 mm[Hg] 142 mm[Hg] 106 mm[Hg] Teagan Correa RN [place] [facility] [place] [employer] 4 14:25:42 Social History Question Answer Notes LastModified by Organizat ion Details LastModified Time Tobacco Smoking Status Current Every Day Smoker Not Available [facility] 04/07/2022 16:57:05 Do You Have An Advance Directive? No [id number] Information not available 04/07/2022 What Is Your Level Of Alcohol Consumption? None [id number] Information not available 04/07/2022 What Is Your Level Of Caffeine Consumption? Heavy Information not available 11/30/2022 How Much Tobacco Do You Chew? None MIGRATION.[id number] 2067 Information not available 04/07/2022 In The 14 Days Before Symptom Onset, Have You Had Close Contact With A Laboratory-confir med COVID-19 While That Case Was Ill? No MIGRATION.[id number] 6584 Information not available 04/07/2022 In The 14 Days Before Symptom Onset, Have You Had Close Contact With A Person Who Is Under Investigation For COVID-19 While That Person Was Ill? No MIGRATION.363552 3264 Information not available 04/07/2022 What Type Of Diet Are You Following? REGULAR MIGRATION.[id number] 3177 Information not available 04/07/2022 Which Illicit Or Recreational Drugs Have You Used? None MIGRATION.[id number] 7431 Information not available 04/07/2022 Do You Or Have You Ever Used E-cigarettes Or Vape? 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 No MIGRATION.421889 6282 Information not available 04/07/2022 Do You Have A Medical Power Of Breaster? No MIGRATION.345804 8090 Information not available 04/07/2022 Do You Or Have You Ever Used Smokeless Tobacco? Never Used Smokeless Tobacco MIGRATION.213753 2330 Information not available 04/07/2022 How Much Tobacco Do You Smoke? 2 PPD Information not available 11/30/2022 Do You Feel Stressed (tense, Restless, Nervous, Or Anxious, Or Unable To Sleep At Night)? [email or web address] Information not available 06/22/2022 Do You Use Sunscreen Routinely? Yes MIGRATION.[id number] 4693 Information not available 04/07/2022 How Many Years Have You Smoked Tobacco? 10 10+ Yrs MIGRATION.713193 7641 Information not available 04/07/2022 Sex: Unknown Functional Status Question Answer Note LastModified by Organizat ion Details LastModified Time What is your exercise level? Occasional [id number] 26 Information not available 04/07/2022 Mental Status None recorded. Family History Relationship Description Onset Age of this Age Resolved Age Notes LastModified by Organization Details LastModified Time Father Diabetes mellitus [id number].127 [id number] Not available 04/07/2022 16:57:09 Father Heart disease MIGRATION.002 [id number] Not available 04/07/2022 16:57:09 Brother Diabetes mellitus MIGRATION.688 [id number] Not available 04/07/2022 16:57:09 Brother Thyroiditis MIGRATION.03 0 [id number] Not available 04/07/2022 16:57:09 Mother Thyroiditis MIGRATION.03 0 [id number] Not available 04/07/2022 16:57:09 Maternal Grandmother Family history of malignant neoplasm BREAST CANCER MIGRATION.061 [id number] Not available 04/07/2022 16:57:09 Medical History Condition Response BLINDNESS N RHEUMATIC FEVER N KIDNEY STONES N BLADDER PROBLEMS N MRSA N OTHER # 1 N POLIO N LUNG DISEASE/DISORDER N COPD N RADIATION / CHEMOTHERAPY N Other # 2 N BLOOD DISEASES N SURGERY N EAR OR HEARING PROBLEMS N MUMPS N FEMALE PROBLEMS / INFECTIONS N DEPRESSION (INCLUDING POST ) N BOWEL PROBLEMS N STROKE/TIA N THYROID DISEASE N ULCERS N BENIGN PROSTATIC HYPERPLASIA N MEASLES N CERVICALGIA N TB SKIN TEST N MYOCARDIAL INFARCTION N OBESITY N PARAPELGIA N GERD/NAUSEA N ANEURYSM N URINARY/BLADDER/KIDNEY PROBLEMS N CORONARY ARTERY DISEASE (CAD) N MENIERE'S DISEASE N ADDICTION CONCERNS N ENDOMETRIOSIS N USE OF BLOOD THINNERS N SKIN PROBLEMS N EMPHYSEMA N GASTROINTESTINAL DISORDER N MUSCLE,JOINT OR BONE PROBLEMS N GASTROINTESTINAL BLEEDING N BLOOD CLOTS N ASTHMA N CATARACTS N ERECTILE DYSFUNCTION N GI PROBLEMS N CHF N Low Testosterone N NEUROPATHY N INFERTILITY N AIDS/HIV N FRACTURES N CHEMOTHERAPY / RADIATION N VISION/EYE PROBLEMS N LIVER DISEASE N MALE HYPOGONADISM N HYPERTENSION N TOURETTE'S N ANXIETY DISORDER Y BLOOD TRANSFUSION N ANEMIA/BLOOD DISORDER N CHRONIC EAR INFECTIONS N BRONCHITIS N TUBERCULOSIS N GLAUCOMA N FOOT PROBLEM N DIVERTICULITIS N CHICKENPOX N SLEEP APNEA N ALLERGIES/HAYFEVER Y INFECTIOUS DISEASE N HEART ARRHYTHMIA N PROSTATE N INSOMNIA N HIGH CHOLESTEROL / HYPERLIPIDEMIA N EYE PROBLEMS N HYPERTHYROIDISM N EATING DISORDER N EDEMA N CHRONIC PAIN SYNDROME N CAROTID BLOCKAGE N CONSTIPATION N BACK / NECK PROBLEMS N HAVE YOU BEEN HOSPITALIZED OR SEEN IN [facility] ER IN THE PAST YEAR ? N ATHEROSCLEROSIS N BREAST PROBLEMS N DIALYSIS N ECZEMA N FIBROMYALGIA N OSTEOPOROSIS N ARTHRITIS N NO SIGNIFICANT PAST MEDICAL HISTORY N APPENDICITIS N DIABETES, TYPE N BAD TEETH N HEARTBURN / REFLUX N ADD/ADHD N AUTISM SPECTRUM DISORDER (ASD) N HEPATITIS / LIVER DISEASE N PULMONARY DISEASE N GOUT N SLEEP DISORDER N ALZHEIMER'S DISEASE N PAIN N HERPES N DEMENTIA N SEIZURES/EPILEPSY N HEADACHES/MIGRAINES Y VASCULAR DISEASE N PACEMAKER N DIZZINESS Y KIDNEY DISEASE N HEART DISEASE/HEART PROBLEMS N SCARLET FEVER N MULTIPLE SCLEROSIS N MENTAL DISORDER/ILLNESS N DEVELOPMENTAL OR BEHAVIORAL DISORDERS N CARDIAC ARRHYTHMIA N CANCER: SPECIFY N PNEUMONIA N Gall Stones N ATRIAL FIBRILLATION N PULMONARY EMBOLISM N AUTOIMMUNE DISEASE N Gynecological History Statement/Question Response Date of LMP Sexually Active? Y Dislike of Light during Menstrual Headac he N Menses Monthly N STIs/STDs N Current Control Method Menopause Breast Problems no Discharge no Obstetrics History GPAL:G 0 P 0 0 0 0 Type Value Living 0 Total 0 Immunizations Vaccine Type Date Status Note Provider [facility] e and Address Organization Details Recorded Time SARS-COV-2 (COVID-19) vaccine, UNSPECIFIED 03/07/2020 completed OL[place], [place] [employer] [facility] 12/28/2022 16:05:36 SARS-COV-2 (COVID-19) vaccine, UNSPECIFIED 02/06/2020 completed [place] [facility] 12/28/2022 16:05:36 Past Encounters Encounter ID Performer Location Encounter Start Date Encounter Closed Date Diagnosis/Indication Diagnosis SNOMED-CT Code Diagnosis ICD10 Code Diagnosis Note [id number] [facility] [address] [place] [address] 06/03/2020 00:00:00 06/03/2020 20:32:55 [id number] [facility] [place] [address] [place] [address] 07/03/2020 00:00:00 07/03/2020 20:04:10 [id number] [facility] [place] [address] [place] [address] 08/12/2020 00:00:00 08/12/2020 17:38:38 [id number] [facility] [place] [address] [place] [address] 12/11/2020 00:00:00 12/11/2020 17:45:49 [id number] [facility] [place] [address] [place] [address] 03/05/2021 00:00:00 03/05/2021 14:55:06 [id number] [facility] [place] [address] [place] [address] 03/10/2021 00:00:00 03/10/2021 19:17:57 [id number] [facility] [place] [address] [place] [address] 09/28/2021 00:00:00 09/28/2021 09:35:51 [id number] COLTON Dorsey [facility] [place] [address] [place] [address] 06/22/2022 15:14:34 06/22/2022 15:41:40 Pain in bilateral legs [id number] M79.604 M79.605 New problemcra mps vs spasms vs neuropathy vs sciaticaRe commend physical therapy. Will check labs to evaluate for electrolyt e imbalance and start on gabapentin in the meantime. Prediabetes 022013878 R7 3.03 Chronic, current status aomujdpM6T 6.2 (09/28/21)D iscussed need for regular exercise, increase intake of water/vege tables/fib er. Decrease intake of carbs, especially white rice/pasta /flour/janusz ad/sugar. [id number] COLTON Dorsey [facility] [place] [address] [facility] [place] [address] 07/06/2022 15:20:01 07/06/2022 16:15:32 Pain in bilateral legs 9257259918 [id number] M79.604 M79.605 No improvemen t with current dose of gabapentin cramps vs spasms vs neuropathy vs sciaticaSt art PT as scheduled on . Labs show mag on the low end of normal Recommend supplement ation and check B12 and Vitamin D levels. Pt to double current dose of gabapentin until next visit. Advised to try tonic water with quinine as well. Prediabetes 609076271 R7 3.03 No improvemen tA1C 6.2 (09/28/21); 6.2 (06/22/22)D iscussed need for regular exercise, increase intake of water/vege tables/fib er. Decrease intake of carbs, especially white rice/pasta /flour/janusz ad/sugar. Increased frequency of urination 390897203 R35.0 New problemMay be d/t increased water intake; however, CBC indicates possible infection with wbc of 15.1. Will check urine dip in office today/UA sent for C & S. No po abx pending lab results. Advised continue increased fluid intake to flush urinary tract. Discussed proper feminine hygiene (wipe front to back, unscented soaps/mois turizers, empty bladder immediatel y after sexual activity). Encouraged use of probiotics . Vitamin D deficiency 347 84222 E55.9 Hypomagnesemia 132417091 E83.42 While still in the normal range, it is at the very low end of normal. Recommend supplement ation for 90 days d/t leg cramps. Plan to repeat in September. Leukocytosis 196350406 D 72.829 New finding on labswbc 15.1 (06/22/22)I n light of slightly abnormal protein and creat findings on CMP, will repeat A1C and check UA to evaluate for possible UTI. [id number] COLTON Dorsey [facility] Primary [facility] [place] [address] [facility] [place] [address] 07/29/2022 14:02:29 07/29/2022 17:35:53 Pain in bilateral legs [id number] [id number] M79.604 M79.605 No improvemen t with higher dose of gabapentin cramps vs spasms vs neuropathy vs sciaticaSt art PT as scheduled. Labs show mag on the low end of normal. Recommend supplement ation and check B12 and Vitamin D levels. Continue to double gabapentin . Advised to try tonic water with quinine as well. Prediabetes 828114859 R7 3.03 No vpxanxY7I 6.2 (09/28/21); 6.2 (06/22/22)D iscussed need for regular exercise, increase intake of water/vege tables/fib er. Decrease intake of carbs, especially white rice/pasta /flour/janusz ad/sugar. Leukocytosis 495167707 D 72.829 Minimal improvemen t from last visit.wbc 15.1 (06/22/22); 14.6 (07/06/22)I n light of slightly abnormal protein and creat findings on CMP, repeated A1C, B12, Vit D, and iron panel. All essentiall y normal. Will refer to hematology for further evaluation /tx. Increased frequency of urination 857938579 R35.0 New problemMay be d/t increased water intake; however, CBC indicates possible infection with wbc of 15.1. Will check urine dip in office today/UA sent for C & S. No po abx pending lab results. Advised continue increased fluid intake to flush urinary tract. Discussed proper feminine hygiene (wipe front to back, unscented soaps/mois turizers, empty bladder immediatel y after sexual activity). Encouraged use of probiotics . Hypomagnesemia 130820651 E83.42 While still in the normal range, it is at the very low end of normal. Recommend supplement ation for 90 days d/t leg cramps. Plan to repeat in September. Vitamin D deficiency 347 36326 E55.9 Vit D 32.1 (07/06/22) Mood disorder 19236366 F 39 ChronicNot well controlled with current dose of escitalopr am. Highly encouraged pt to consider counseling . Denies any SI/HI at this time. Increase to escitalopr am 10mg daily. Pt to stop medication and be seen if s/e develop. Pt to call with update in 2 weeks. --RTO 4 weeks for f/u on medication [id number] COLTON Dorsey [facility] Primary [facility] [place] [address] [facility] [address] [place] [address] 09/09/2022 15:58:32 09/09/2022 16:52:54 Pain in bilateral legs 9802256356 4936916 M79.604 M79.605 Chronic, not improved with gabapentin , lyrica, magnesium, tonic water, ibuprofen, cyclobenza dahlia.Will send for doppler of BLE and xrays of legs to evaluate for pathologie s. May still need to consider arterial screening as well. Will repeat labs for anemias and give course of pain meds. Leukocytosis 825198728 D 72.829 Improving slowlywbc 15.1 (06/22/22); 14.6 (07/06/22); 13.9 (09/03/22)R eferred to hematology for further evaluation /tx. Mood disorder 01097512 F 39 ChronicNot well controlled with current dose of escitalopr am. Highly encouraged pt to consider counseling . Denies any SI/HI at this time. Increase to escitalopr am 10mg daily. Pt to stop medication and be seen if s/e develop. Pt to call with update in 2 weeks. --RTO 4 weeks for f/u on medication Hypomagnesemia 097295335 E83.42 While still in the normal range, previous level at the very low end of normal. Pt to continue supplement ation pending updated lab results. Vitamin D deficiency 347 08238 E55.9 Vit D 32.1 (07/06/22) [id number] COLTON Dorsey [facility] Primary Care [facility] [address] [facility] [facility] [place] [address] 09/28/2022 15:53:58 09/28/2022 16:38:47 Pain in bilateral legs 1134242670 2164066 M79.604 M79.605 Chronic, not improved with gabapentin , lyrica, magnesium, tonic water, ibuprofen, cyclobenza dahlia.Wait ing for doppler of BLE. xrays of legs neg except for bone spur on left femur. May still need to consider arterial screening as well. Will renew course of pain meds. Leukocytosis 533551366 D 72.829 Improving slowlywbc 15.1 (06/22/22); 14.6 (07/06/22); 13.9 (09/03/22)C ontinue to f/u with hematology as scheduled in Oct. Hypomagnesemia 594354556 E83.42 While still in the normal range, previous level at the very low end of normal. Pt to continue supplement ation. Vitamin D deficiency 347 16497 E55.9 ImprovingV it D 32.1 (07/06/22) Mood disorder 55997770 F 37 ChronicImp roved with higher of escitalopr am. Highly encouraged pt to consider counseling . Denies any SI/HI at this time. Increase to escitalopr am 10mg daily. Pt to stop medication and be seen if s/e develop. Pt to call with update in 2 weeks.RTO 4 weeks for f/u on medication [id number] COLTON Dorsey [facility] [address] [place] [address] 11/30/2022 16:47:37 11/30/2022 17:17:01 Pain in bilateral legs 3064463664 [id number] M79.604 M79.605 Chronic, not improved with gabapentin , lyrica, magnesium, tonic water, ibuprofen, cyclobenza dahlia, tramadol.W aiting for doppler of BLE. xrays of legs neg except for bone spur on left femur. May still need to consider arterial screening as well since pain seems to be out of range for sx.. Will give hydrocodon e for pain Mood disorder 31085825 F 37 ChronicImp roving with higher dose of escitalopr am, but not to goal. Highly encouraged pt to consider counseling . Denies any SI/HI at this time. Increase to escitalopr am 20mg daily. Pt to stop medication and be seen if s/e develop. Pt to call with update in 2 weeks.RTO 4 weeks for f/u on medication Pain of le ft hip joint 7956711265 38850 M25.552 New problemxra y indicates a bone spur on left lesser trochanter Will refer to ortho for further evaluation /tx. [id number] DELON Hernandez [facility]_[address] [address] 12/09/2022 14:12:15 12/09/2022 15:33:22 Pain of left hip joint 5644733739 26719 M25.139 [id number] DELON Garcia [facility] Primary Care [facility] [address] [facility] [place] [address] 12/28/2022 15:59:05 12/28/2022 16:26:27 Pain in bilateral legs 8464386365 8923554 M79.604 M79.605 Doppler negative. Pt. states pain completely resolved with pain medication .She is still doing magnesium and ibuprofen when needed.Adv ised we can continue current dose of pain medication (she is medicaid and unlikely she will be accepted to any pain management ), reviewed controlled substance policy and she expressed understand ing. 09/09/22: Chronic, not improved with gabapentin , lyrica, magnesium, tonic water, ibuprofen, cyclobenza dahlia.Will send for doppler of BLE and xrays of legs to evaluate for pathologie s. May still need to consider arterial screening as well. Will repeat labs for anemias and give course of pain meds. [id number] DELON Hernandez [facility] [address] 01/06/2023 14:23:51 01/06/2023 15:01:39 Trochanteric bursitis of left hip 9703353790 99196 M70.62 [id number] DELON Hernandez [facility] [address] 03/10/2023 14:02:56 03/10/2023 14:20:56 [id number] Joanna Burris MD [facility] Primary Care [facility] [address] [facility] [place] [address] 03/31/2023 14:01:38 03/31/2023 15:16:28 Pain in bilateral legs 7445844315 [id number] M79.604 M79.605 G62.9 R20.2 ? neuropathy vs PVDcheck labs and ABIreviewe d s/s that warrant urgent/amy rgent eval in meantime Low back pain 922486307 M54.50 Hyperglycemia 15187143 R 73.9 Leukocytosis 841645941 D 72.902 [id number] Joanna Burris MD [facility] [address] [facility] [address] [place] [address] 04/14/2023 13:59:10 04/14/2023 14:37:16 Health Concerns Section Related Observation LastModified by Organization Detai ls LastModified Time None Recorded Concern Status LastModified by Organization Details LastModified Time None Recorded Advance Directives Directive N: Payers Encounter Date Sequence Insurance Name Policy Number Policy Bales Covered Member ID Bales Member ID Guarantor Name 12/28/2022 1 [employer] [place] ([place] [id number] Ashley Terrazas Nate [id number] Ashley Terrazas Nate 01/06/2023 1 [employer] [place] [id number] Ashley Terrazas Nate [id number] Ashley Terrazas Nate 03/10/2023 1 [employer] [place] [id number] Ashley Terrazas Nate [id number] Ashley Nini Nate 03/31/2023 1 [employer] [place] [id number] Ashley Terrazas Nate [id number] Ashley Terrazas Nate 04/14/2023 1 [employer] [place] [id number] 0003 Ashley Terrazas Nate [id number] Ashley Nate Notes Date Note Type Note Provider Name and Address Organization Details Recorded Time 12/28/2022 text/html Pt. here to f/u on bilateral leg pain. Since starting hydrocodone she has had complete resolution of leg pain. Doppler was also negative for DVT. DELON Garcia [address] [facility], [facility] [address], [place], [address], [facility] 12/28/2022 16:29:50 03/31/2023 text/html her for f/u, leg pain is worse with walking and standing full legs hurt, aaron calvesburning sensation, putting feet up to elevate gives some relief has been going on for about a year, started out as achiness then got worse, legs felt like they were on fire, doing stairs Joanna Burris MD [address] [facility], [facility] [address], [place], [address], [place] [facility] 04/06/2023 19:42:13 OBGyn Episode No OBEpisode recorded.
--- OUTSIDE RECORDS SUMMARY | 2024-03-02 03:53 | XMS_ITS | Data Portability ---
Author Organization [facility] [place] Address [address] [place] [address] Care Team Providers Care Case Worker Name Role Phone HAI LEON Primary Care Provider Assessment Encounter Date Assessment Date Assessment LastModified by Organization Details LastModified Time 11/18/2020 11/18/2020 Time spent in visit is a total of 49 mins with at least 50% of visit consisting of counseling and review of plan of care. Additional precautionary measures were taken to minimize potential exposure to the Covid-19 virus during this patient? s visit, including available hand on site wastewater systems technician upon arrive, temperature check and being asked a series of screening questions. All staff wore face coverings during this encounter, as well as provided additional cleaning and sanitizing of all surfaces, including countertops, pens, chairs, door handles, light switches, etc, prior to and following the patient? s visit. Not available 11/24/2020 13:08:18 01/08/2021 01/08/2021 Time spent in visit is a total of 26 mins with at least 50% of visit consisting of counseling and review of plan of care. Additional precautionary measures were taken to minimize potential exposure to the Covid-19 virus during this patient? s visit, including available hand on site wastewater systems technician upon arrive, temperature check and being asked a series of screening questions. All staff wore face coverings during this encounter, as well as provided additional cleaning and sanitizing of all surfaces, including countertops, pens, chairs, door handles, light switches, etc, prior to and following the patient? s visit. Not available 01/14/2021 23:41:32 Plan of Treatment Reminders Order Date Submit Date Provider Last Modified By Organization Details Last Modified Time Details Appointments None recorded. Lab urinalysis, dipstick 2022 023 [email or web address] 1 [address], [address], [place], [address], 3 09:54:09 culture, urine 2022 023 [facility] (Lab), [address], [place], [address], 3 07:17:19 Referral None recorded. Procedures None recorded. Surgeries None recorded. Imaging None recorded. Medication Orders Premarin 0.625 mg/gram vaginal cream [address] [facility]/Pharmacy #[id number], [address], [place], [address], 1 12:12:05 nystatin-tr iamcinolone 100,000 unit/gram-0 .1 % topical ointment 2020 021 [email or web address] 1 [facility]/Pharmacy #[id number], [address], [place], [address], 3 09:48:51 Myrbetriq 25 mg tablet,exte nded release 2020 021 [email or web address] 1 [facility]/Pharmacy #[id number], [address], [place], [address], 3 09:48:36 norethindro ne acetate 5 mg tablet 2020 021 [email or web address] 1 [facility] #[id number], [address], [place], [address], 3 09:48:48 Imvexxy Maintenance Pack 4 mcg vaginal insert 2020 021 [email or web address] 1 [facility]/Pharmacy #[id number], [address], [place], [address], 3 09:48:32 Myrbetriq 25 mg tablet,exte nded release 2020 021 [email or web address] 1 [facility]/Pharmacy #[id number], [address], [place], [address], 3 09:48:36 Macrobid 100 mg capsule 2022 023 [email or web address] [facility]/Pharmacy #[id number], [address], [place], [address], 3 11:19:27 Pyridium 200 mg tablet 2022 023 [facility]/Pharmacy #[id number], [address] , [place], [address], 3 10:05:32 Patient TargetsNo targets recorded. Patient InstructionsNo instructions recorded. Reason for Referral None Reported. Results Created Date Observation Date Name Description Value Unit Range Abnormal Flag Note LastModifiedBy Organization Detail LastModifiedTime 11/19/1911/18/2020 CT/GC AND TRICH OMONA S VAGIN ERASMO (RRNA ), SWAB chlamydia trachomatis, PCR Negati ve negati ve Not Available [facility] (Lab) [address] [place], [address], 11/19/2020 17:48:46 11/19/19 21 11/18/2020 CT/GC AND TRICH OMONA S VAGIN ERASMO (RRNA ), SWAB neisseria gonorrhoeae, PCR Negati ve negati ve Not Available [facility] (Lab) [address] [place], [address], 11/19/2020 17:48:46 11/19/19 21 11/18/2020 CT/GC AND TRICH OMONA S VAGIN ERASMO (RRNA ), SWAB trichomonas vaginalis ribosomal RNA (rrna) Negati ve negati ve Not Available [facility] (Lab) [address] [facility], [place], [address], 11/19/2020 17:48:46 11/19/1911/18/2020 VAGIN ITIS/ VAGIN OSIS, DNA PROBE seema sp. detection, direct probe Negati ve negati ve Not Available [facility] (Lab) [address] [facility], [place], [address], 11/19/2020 17:48:47 11/19/19 21 11/18/2020 VAGIN ITIS/ VAGIN OSIS, DNA PROBE gardnerella vag. detection, direct probe Positi ve negati ve abnormal Not Available [facility] (Lab) [address] [facility], [place], [address], 11/19/2020 17:48:47 11/19/19 21 11/18/2020 VAGIN ITIS/ VAGIN OSIS, DNA PROBE trichomonas vag. detection, direct probe Negati ve negati ve Not Available [facility] (Lab) [address] [facility], [place], [address], 11/19/2020 17:48:47 03/27/19 23 03/27/2022 urina lysis , dipst ick Leukocytes trace Not Available Susanne ortiz [address], [place], [address], 03/27/2022 09:52:25 03/27/19 23 03/27/2022 urina lysis , dipst ick Nitrite normal Not Available [place] [address], [place], [address], 03/27/2022 09:52:25 03/27/19 23 03/27/2022 urina lysis , dipst ick Urobilinogen normal Not Available [facility] [address], [place], [address], 03/27/2022 09:52:25 03/27/19 23 03/27/2022 urina lysis , dipst ick Protein trace Not Available [place] [address], [place], [address], 03/27/2022 09:52:25 03/27/19 23 03/27/2022 urina lysis , dipst ick pH 5 Not Available [place] [address], [place], [address], 03/27/2022 09:52:25 03/27/19 23 03/27/2022 urina lysis , dipst ick Blood + Not Available [place] [address], [place], [address], 03/27/2022 09:52:25 03/27/19 23 03/27/2022 urina lysis , dipst ick Specific [place] 1.020 Not Available [facility] zoë [address], [place], [address], 03/27/2022 09:52:25 03/27/19 23 03/27/2022 urina lysis , dipst ick Ketone normal Not Available [place] [address], [place], [address], 03/27/2022 09:52:25 03/27/19 23 03/27/2022 urina lysis , dipst ick Bilirubin normal Not [facility] [address], [place], [address], 03/27/2022 09:52:25 03/27/19 23 03/27/2022 urina lysis , dipst ick Glucose normal Not Available [place] [address], [place], [address], 03/27/2022 09:52:25 03/27/19 23 03/27/2022 urina lysis , dipst ick Appearance normal [facility] [address], [place], [address], 03/27/2022 09:52:25 03/27/19 23 03/27/2022 urina lysis , dipst ick Color normal Not Available [address], [place], [address], 03/27/2022 09:52:25 03/29/19 23 03/29/2022 CT/GC (LAQUITA) , SWAB chlamydia trachomatis, PCR Negati ve negati ve Not Available [facility] (Lab) [address] [facility], [place], [address], 03/30/2022 22:44:25 03/29/19 23 03/29/2022 CT/GC (LAQUITA) , SWAB neisseria gonorrhoeae, PCR Negati ve negati ve Not Available [facility] (Lab) [address] [facility], [place], [address], 03/30/2022 22:44:25 03/29/19 23 03/29/2022 VAGIN ITIS/ VAGIN OSIS, DNA PROBE seema sp. detection, direct probe Negati ve negati ve Not Available [facility] (Lab) [address] [facility], [place], [address], 03/30/2022 22:44:25 03/29/19 23 03/29/2022 VAGIN ITIS/ VAGIN OSIS, DNA PROBE gardnerella vag. detection, direct probe Negati ve negati ve Not Available [facility] (Lab) [address] [facility], [place], [address], 03/30/2022 22:44:25 03/29/19 23 03/29/2022 VAGIN ITIS/ VAGIN OSIS, DNA PROBE trichomonas vag. detection, direct probe Negati ve negati ve Not Available [facility] (Lab) [address] [place], [address], 03/30/2022 22:44:25 03/29/19 23 03/29/2022 CULTU RE: URINE result report SEE RESULT S BELOW Test: Cultu re: Urine Speci men Sourc e: Urine Voide d Speci men Type: Urine Speci men Date: 2022 3:18 PM Resul t Date: 2022 6:14 AM Resul t Statu s: Final resul t Abnor mal: No Resul ting Lab: [facility] [address] [facility] [address] Tel: CULTU RE ----- ----- ----- --- No growt h in 1 day (dete ction level of 10,00 0 colon ies / ml.) Not Available [facility] (Lab) [address] [facility], [place], [address], 03/31/2022 07:17:19 Result Notes None recorded. Procedures Surgical History Date Name Laterality Status Provider Name and Address Organization Details Recorded Time 5 Laparoscopy completed [facility] 01/29/2021 16:52:45 4 Laparoscopy completed [facility] 01/29/2021 16:52:34 3 Laparoscopy completed [facility] 01/29/2021 16:52:29 2 Laparoscopy completed [facility] 01/29/2021 16:52:26 1 Laparoscopy completed [facility] 01/29/2021 16:52:20 1 Hysteroscopy completed [facility] 01/29/2021 16:52:57 0 Laparoscopy completed [facility] 01/29/2021 16:52:16 9 Laparoscopy completed [facility] 01/29/2021 16:52:04 Imaging Results None recorded. Procedure Notes None recorded. Medical Equipment None Reported. Allergies No known drug allergies Medications Name Sig Start Date Stop Date Status Note LastModified by Organization Details LastModified Time cyclobenz aprine 10 mg tablet 03/27 completed Not Available Not Available Not Available nicotine 14 mg/24 hr daily transderm al patch 03/27 completed Not Available Not Available Not Available ibuprofen 800 mg tablet TAKE 1 TABLET BY MOUTH THREE TIMES A DAY NEEDED active Not Available Not Available No t Available fluconazo le 150 mg tablet 03/04 completed Not Available Not Available Not Available phenazopy ridine 200 mg tablet TAKE 1 TABLET BY MOUTH THREE TIMES A DAY NEEDED FOR 7 DAYS active Not Available Not Available No t Available metronida zole 500 mg tablet Take 1 tablet twice daily for 7 days 01/08 completed Not Available Not Available Not Available sulfameth oxazole 800 mg-trimet hoprim 160 mg tablet 01/08 completed Not Available Not Available Not Available tramadol 50 mg tablet 03/27 completed Not Available Not Available Not Available amitripty line 50 mg tablet 03/27 completed Not Available Not Available Not Available triamcino lone acetonide 0.1 % topical cream 01/08 completed Not Available Not Available Not Available nystatin- triamcino lone 100,000 unit/gram -0.1 % topical ointment APPLY TO THE AFFECTED AREA(S) ON THE VULVA TWICE DAILY 7 DAYS 03/27 completed Not Available Not Available Not Available amitripty line 25 mg tablet Take 1 tablet every day by oral route. active Not Available Not Available No t Available nicotine (polacril ex) 4 mg gum 03/27 completed Not Available Not Available Not Available nicotine 21 mg/24 hr daily transderm al patch APPLY 1 PATCH DAILY FOR 6 WEEKS *STOP SMOKING CIGARETT ES* 03/27 completed Not Available Not Available Not Available hydroxyzi ne HCl 25 mg tablet TAKE 1 TABLET BY MOUTH THREE TIMES A DAY NEEDED active Not Available Not Available No t Available norethind thuy acetate 5 mg tablet Take 1 tablet by oral route every day 03/27 completed Not Available Not Available Not Available ergocalci ferol (vitamin D2) 1,250 mcg (50,000 unit) capsule TAKE 1 CAPSULE BY MOUTH ONCE WEEKLY active Not Available Not Available No t Available estradiol 0.01% (0.1 mg/gram) vaginal cream Use topicall y to vagina daily x30 days 01/08 completed Not Available Not Available Not Available fluticaso ne propionat e 50 mcg/actua tion nasal spray,ximena pension INSTILL 1 SPRAY INTO EACH NOSTRIL ONCE DAILY active Not Available Not Available No t Available amoxicill in 875 mg-potass ium clavulana te 125 mg tablet 01/08 completed Not Available Not Available Not Available aripipraz ole 5 mg tablet TAKE 1 TABLET BY MOUTH EVERY DAY active Not Available Not Available No t Available bupropion HCl XL 300 mg 24 hr tablet, extended release 03/04 completed Not Available Not Available Not Available bupropion HCl XL 150 mg 24 hr tablet, extended release 03/04 completed Not Available Not Available Not Available escitalop casimiro 5 mg tablet TAKE 1 TABLET BY MOUTH EVERY DAY active Not Available Not Available No t Available nitrofura ntoin monohydra te/macroc rystals 100 mg capsule TAKE 1 CAPSULE BY MOUTH EVERY 12 HOURS WITH MEALS FOR 7 DAYS active Not Available Not Available No t Available Myrbetriq 25 mg tablet,ex tended release 03/27 completed Not Available Not Available Not Available bupropion HCl 150 mg tablet,12 hr sustained -release( smoking deterrent ) TAKE 1 TABLET TWICE A DAY BY ORAL ROUTE FOR 90 DAYS. active Not Available Not Available No t Available Solosec [address] granules in packet Take 1 packet every day by oral route for 1 day. 11/21 completed Not covered under insuranc e. Will send Flagyl Not Available Not Available Not Available Imvexxy Maintenan ce Pack 4 mcg vaginal insert Insert 1 vaginal insert twice a week by vaginal route for 60 days. 03/27 completed Not Available Not Available Not Available Vitals Date Recorded Body height Body mass index (BMI) Body weight Systolic blood pressure Diastolic blood pressure Provider Name and Address Organization Details Last Updated DateTime 11/18/2020 160.66 cm 31.1 kg/m2 44506.85 g 110 mm[Hg] 70 mm[Hg] Kathi Solis [facility] 14:30:35 Date Recorded Body height Body mass index (BMI) Body weight Systolic blood pressure Diastolic blood pressure Provider Name and Address Organization Details Last Updated DateTime 01/08/2021 160.66 cm 31.6 kg/m2 47135.63 g 111 mm[Hg] 73 mm[Hg] Peggy Villanuevatz [facility] 14:14:07 Date Recorded Body height Body mass index (BMI) Body weight Provider Name and Address Organization Details Last Updated DateTime 03/27/2022 160.66 cm 33.2 kg/m2 12418.96 g Peggy Rasheed [facility] 03/27/2022 09:47:45 Date Recorded Systolic blood pressure Diastolic blood pressure Provider Name and Address Organization Details Last Updated DateTime 03/27/2022 130 mm[Hg] 80 mm[Hg] Marilyn Man, [facility]- [address], [place], [address], [facility] 03/27/2022 11:19:42 Social History Question Answer Notes LastModified by Organizat ion Details LastModified Time Tobacco Smoking Status Current Every Day Smoker Jaxson cifuentes, [facility] 03/27/2022 09:36:45 Do You Have An Advance Directive? No [email or web address] Information n ot available 01/08/2021 What Is Your Level Of Alcohol Consumption? None [email or web address] Information not available 01/08/2021 Are You Blind Or Do You Have Difficulty Seeing? No [email or web address] Information n ot available 01/08/2021 What Is Your Level Of Caffeine Consumption? Moderate [email or web address] Information not available 01/08/2021 In The 14 Days Before Symptom Onset, Have You Had Close Contact With A Laboratory-confirm ed COVID-19 While That Case Was Ill? No [email or web address] Information n ot available 01/08/2021 In The 14 Days Before Symptom Onset, Have You Had Close Contact With A Person Who Is Under Investigation For COVID-19 While That Person Was Ill? No [email or web address] Information not available 01/08/2021 Have You Been To An Area Known To Be High Risk For COVID-19? No [email or web address] Information not available 01/08/2021 Are You Deaf Or Do You Have Serious Difficulty Hearing? No [email or web address] Information not available 01/08/2021 What Type Of Diet Are You Following? REGULAR [email or web address] Information n ot available 11/18/2020 What Is The Highest Grade Or Level Of School You Have Completed Or The Highest Degree You Have Received? EP22040-6 [email or web address] Information not available 01/08/2021 Are There Any Guns Present In Your Home? No [email or web address] Information not available 01/08/2021 Do You Use Protection During Sex? No [email or web address] Information not available 01/08/2021 Do You Use Your Seat Belt Or Car Seat Routinely? Yes [email or web address] Information not available 01/08/2021 Do You Have Smoke And Carbon Monoxide Detectors In Your Home? No [email or web address] Information not available 01/08/2021 At What Age Did You Start Smoking Tobacco? 15 [email or web address] Information not available 01/08/2021 How Much Tobacco Do You Smoke? 1 PPD [email or web address] Information not available 01/08/2021 Do You Use Any Illicit Or Recreational Drugs? No [email or web address] Information not available 01/08/2021 Do You Use Sunscreen Routinely? No [email or web address] Information not available 01/08/2021 Have You Used IV Drugs? No [email or web address] Information not available 01/08/2021 Sex: Unknown Functional Status Question Answer Note LastModified by Organizat ion Details LastModified Time Do you have difficulty walking or climbing stairs? No [email or web address] Information not available 03/27/2022 Are you able to care for yourself? Yes [email or web address] Information not available 03/27/2022 Do you have difficulty dressing or bathing? No [email or web address] Information not available 03/27/2022 What is your exercise level? Occasional [email or web address] Information not available 01/08/2021 Mental Status None recorded. Family History Relationship Description Onset Age of this Age Resolved Age Notes LastModified by Organization Details LastModified Time Father Heart disease [email or web address] Not available 01/08 14:14:28 Maternal Grandfather Heart disease [email or web address] Not available 01/08 14:14:28 Medical History Condition Response Allergies (Food, seasonal, environmental ) N Other N Breast Cancer N Drug/Latex Allergies/Reactions N Blood Transfusion N Dermatologic Disorders N Lung Disease N Defects or Inherited Disease N Breast Problem N Gestational Diabetes N Hematologic disorders N Anesthesia Complications N History of STI N Deep Vein Thrombosis N Polycystic ovary syndrome N Anxiety Disorder Y Autoimmune disease Y Arthritis N Infertility N Polyps N Acid Reflux (GERD) N History of abnormal pap N Cancer N Stroke N Varicosities N Neurologic/Epilepsy N Endometriosis Y High Cholesterol N Headaches N Fibromyalgia Y Kidney Disease N Heart Problems N Kidney or Bladder Problems N Thyroid Problems N GI Problems N Eating Disorder N Anemia N Art (IVF or FET) N Psychiatric Illness Y Ovarian Cancer N Diabetes N Pulmonary (TB, Asthma) N Hepatitis/Liver Disease N No Past Medical History N Eczema N Urinary Tract Infection N Abuse/Domestic Violence N Asthma N Trauma/Violence N Depression/ depression Y Heart Disease N Pre-Eclampsia N Hypertension N Osteoporosis N Thrombophilias N Gynecological History Statement/Question Response Abnormal Pap N Date of Last Mammogram Most Recent Bone Density Date of LMP 02/08/2000 Sexually Active? Y N Date of Last Pap Smear Sexual Problems? N Current Control Method Hysterectom y LMP Approximate N Obstetrics History GPAL:G 0 P 0 0 0 0 Type Value Living 0 Total 0 Past Encounters Encounter ID Performer Location Encounter Start Date Encounter Closed Date Diagnosis/Indication Diagnosis SNOMED-CT Code Diagnosis ICD10 Code Diagnosis Note [id number] Marilyn Man [facility] [address] [address] 11/18/2020 13:56:28 11/19/2020 20:01:08 Chronic pelvic pain of female 275465290 R10.2 Wait pelvic floor therapy until we can get external vulvovagin al irritation better managed.[place] [facility] management or [place] ???Full hysterecto my but we decided a Trial progestero ne might be useful with her hx of endometrio sis. Smoking cessation Atrophic vaginitis 22450 000 N95.2 RTO x 4wks med checkVCG sheet given with specific instructio ns moisturizi ng & omitting possibly daily contact irritants. Sheet give for home review.We need to get this area under control prior to sending to pelvic floor therapy.Jina smith barely tolerated us touching the skin of vulva on exam. Trying to give up smoking [id number] Z72.0 Has tried patch & nicotine gum failed both.She is on Aripiprazo le==will have information security specialist Jessica contact pt & ask if we can obtain the name of doctor who prescribes this medication to ensure Wellbutrin for smoking cessation will be appropriat e for use with this medication . MUST Obtain clearance from this doctor prior to trial of wellbutrin as it is a mood modulator. Counseled on medication R/B's, Most common side effects, & use. All questions were answered to patient satisfacti on. Counseled on r/b's, most common side effects of this therapy with instructio ns to stop medication with any significan t abnormal change in mood especially with thoughts of suicide/se lf-harm/guo rm to others. Understand ing verbalized .RTO x 4wks med check if psychiatri st approves trial of Wellbutrin for smoking cessation. Nocturia 426843219 R35.1 R35.0 Keep a urinary voiding diary more to track frequency than voiding amount so we can determine if this medication is achieving it's goal. Consider referral to urogyn for management of possible IC/PBS and related issues moving forward.Jina smith is due to see [facility] endo specialist Dr. Lares-[place] so consider referral to [facility] providers for consistenc y. [id number] EDUARDO [facility] [address] [address] 01/08/2021 13:48:38 01/15/2021 08:58:26 Chronic pelvic pain of female 510114041 R10.2 N94.10 Today, we agreed on trial of low dose Imvexxxy 4mcg 2x/wk; vaginal estrogen therapy.R/ B's discussed (hx of hysterecto my w/ BSO late 30's).Larisa y crisco vaginally! !!RTO x 6-7wks med checkSampl es givenVag estrogen cream not covered by her insurance. Overactive urinary bladder [id number] N32.81 Myrbetriqu e has completely resolved nocturia.T ried other therapies & Myrbetriq seems to be the only therapy that has made improvemen ts in nocturia & increased quality of sleep. Samples given & Rx sentMight need a PA-failed other treatments . Trying to give up smoking [id number] Z72.0 Psychiatri approved trial of Wellbutrin for smoking cessation. Will reassess her progress at upcoming visit. [id number] Marilyn Man , [facility] [address] [address] 03/27/2022 09:36:32 03/27/2022 11:46:56 Pain in pelvis 12272481 R10.2 Bladder vs vaginal infection? It is unclear the main cause of her current complaints .She is suspected previously to have possible Chronic interstiti al cystitis which is a high possibilit y being a smoker & Hx of pelvic pain with endometrio sis.Her urine was sent for cx & microscopy due to +blood.Sin ce it is the weekend we decided to treat as a possible UTI with addition of Pyridium to help soothe bladder which in turn could help with the period like cramps. Wi ll contact with results of testing sent. Counseled on medication R/B's, Most common side effects, & use. All questions were answered to patient satisfacti on. Time spent in visit is a total of 26 mins with at least 50% of visit consisting of counseling and review of plan of care. Dysuria 98832124 R30.0 Health Concerns Section Related Observation LastModified by Organization Detai ls LastModified Time None Recorded Concern Status LastModified by Organization Details LastModified Time None Recorded Advance Directives Directive N: Payers Encounter Date Sequence Insurance Name Policy Number Policy Bales Covered Member ID Bales Member ID Guarantor Name 11/18/2020 1 [facility] (MEDICAID HM) [id number] Ashley Nate [id number] Ashley Sullivan 01/08/2021 1 [facility] (MEDICAID HMO) [id number] Ashley Sullivan [id number] Ashley Sullivan 03/27/2022 1 [facility] (MEDICAID HM) [id number] Ashley Nate [id number] Ashley Sullivan Notes Date Note Type Note Provider Name and Address Organization Details Recorded Time 1 text/html Here today for Hx of chronic pelvic pain x >10yrs.Complicated health Hx.Has appointment at [facility] with Dr. Washburn for endometriosisHx of Full hysterectomyHx of scar tissueHx of multiple abd/pelvic surgeries Lives with daily pain.Feels does not always know where it is coming from. Unable to decipher types of pain. : 4-5x within the 4hrs; Waking up 3-4x/HS x 2mos, +Bladder discomfort FULL bladder does not increase discomfort. Hx of UTI per pt (No testing). Trial of bladder instillations x 8 wks (failed trial).Hydrodistention Cystoscopy (Caused bladder irritation). Endo surgeries:Lap for endo ablation x 2Hysterectomy with 1 ovary (then, took next ovary5-7 laparoscopy completed :+Bladder pain with full bladder & randomly+Nocturia & daytime frequency issuesNeg UUI/SUINeg UTI/Kidney stone HxNeg Marilyn Man [facility]- [address], [place], [address], [facility] 11/25/2020 12:09:17 1 text/html Here today for f/u OAB medication & also check if vulva. 1. NocturiaShe has made improvement in HS Nocturia with Myrbetriq.Has been getting full nights sleep most nights.Has improved some of her daytime pelvic pain but only by 25-35%.Denies neg side effects with this medication. 2. Vulvar irritationTreated for BV TI.Noted some improvement & has continued to use vegetable based moisturizers but did not start vaginal estrogen therapy yet. 3. Smoking cessation.Started on Wellbutrin recently to try & help with smoking cessation.Decreasing the number of cigarettes every week.Happy about this. Marilyn Man [facility]- [address], [place], [address], [facility] 01/14/2021 23:44:48 3 text/html Beer-Pelvic PainReported bypatient.Notes:terry flores is a 41yo white surgically post-menopausal female with total hysterectomy with BSO for pelvic pain/endometriosis. She is here today with complaints of period like cramps daily. This has been going to for almost 2mos now.Usually present daily to some degree but manageable.She is unable to figure out triggers associated with this issue.Pain can range from 2-3 out of 10 to 7-8 out of 10.Heating pad or hot bath can help but does not resolve it. Neg AUBNeg pain of abd/flankNeg urinary sx'sNeg GI sx'sNeg N/V/F/C/DNeg Vag d/c, odor, irritation, itchingNeg new sexual partner Marilyn Man, [facility] [address], [place], [address], [place] - [facility] 03/27/2022 11:26:28 OBGyn Episode No OBEpisode recorded.
== END 2024-03-01 08:36 | disposition home or self-care (01) ==
PROVIDERS: Emergency Provider Nurse Practitioner Family
DX: J06.9 Acute upper respiratory infection, unspecified (principal); R05.9 Cough, unspecified; F17.210 Nicotine dependence, cigarettes, uncomplicated; N80.9 Endometriosis, unspecified
CPT/HCPCS: 99213; G0463